=== PATIENT | male | born 1965 | race Two or more races ===

== ENCOUNTER 2024-11-17 09:57 | Emergency (ER) | payer BC, SELFPAY ==
[2024-11-17 09:58] VITALS: BMI 27.4
[2024-11-17 10:18] VITALS: BP 139/92; PULSE 70; RESP 18; TEMP 36.6; O2SAT 99
--- NOTE | 2024-11-17 10:21 | EKG_ITS ---
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
--- NOTE | 2024-11-17 10:21 | XR_ITS ---
Examination: PA lateral chest 2 views TECHNIQUE: Upright PA lateral chest 2 views Exam date and time: November 17, 2024 1036 hours INDICATIONS: Onset chest pain today. FINDINGS: Normal heart size Atelectasis versus early pneumonia in the right middle lobe noted on the lateral view No pulmonary edema IMPRESSION: Atelectasis versus early pneumonia in the right middle lobe, clinical correlation advised
--- NOTE | 2024-11-17 10:21 | XR_ITS ---
Examination: Duplex scan of the lower extremity, unilateral left complete Date and time of exam: November 17, 2024 1151 hours INDICATIONS: Left leg pain beginning 4 days ago Technique: Duplex scan of the extremity veins using B-mode/grayscale imaging and Doppler spectral analysis and color flow Attention is directed to internal echogenicity, compression and augmentation involving these veins, color flow assessment, spectral analysis Findings: Positive for acute deep vein thrombus involving the left popliteal vein Remaining venous system open IMPRESSION: Positive for acute deep vein thrombus left popliteal vein..
--- NOTE | 2024-11-17 10:22 | PD.EDRME ---
Rapid Medical Screening Exam RME Arrival date/time: 11/17/24 09:57 58-year-old male with recent air travel to [place] presents to the emergency department today complains of left lower extremity swelling Chief Complaint: Shortness of Breath/Dyspnea Time Seen by Provider: 11/17/24 10:04 Vital signs: Vital Signs Temperature 98 F 11/17/24 10:18 Pulse Rate 70 11/17/24 10:18 Respiratory Rate 18 11/17/24 10:18 Blood Pressure 139/92 H 11/17/24 10:18 Pulse Oximetry (%) 99 11/17/24 10:18 Oxygen Delivery Method Room Air 11/17/24 10:18
[2024-11-17 10:41] LABS: Basophils # (Auto) 0.1 Thou/mm3 (0.0-0.2); Basophils % (Auto) 1 % (0-2.5); Eosinophils # (Auto) 0.2 Thou/mm3 (0.0-0.5); Eosinophils % (Auto) 2 % (0-10); Hematocrit 51.5 % (41.0-53.0); Hemoglobin 17.9 g/dL (13.5-16.0); Immature Granulocytes % (Auto) 0 % (0-0); Immature Granulocytes Auto 0.01 Thou/mm3 (0.00-0.00); Lymphocytes % (Auto) 33 % (10-50); Mean Corpuscular HGB Conc 34.8 g/dl (31.0-37.0); Mean Corpuscular Hemoglobin 31.7 pg (25.0-35.0); Mean Corpuscular Volume 91 fL (80-100); Monocytes # (Auto) 0.7 Thou/mm3 (0.0-0.8); Monocytes % (Auto) 8 % (0-12); Neutrophils # (Auto) 5.2 Thou/mm3 (1.8-7.7); Neutrophils % (Auto) 57 % (37-80); Nucleated Red Blood Cell % 0 /100 WBC (0); Platelet Count 231 Thou/mm3 (140-440); RDW Standard Deviation 43.6 fL (35.1-43.9); Red Blood Count 5.65 Miln/mm3 (4.50-5.90); White Blood Count 9.1 Thou/mm3 (3.8-10.6)
[2024-11-17 10:55] LABS: Partial Thromboplastin Time 27.2 Seconds (22.0-36.0); Prothrombin Time 11.4 Seconds (9.0-12.2)
[2024-11-17 10:56] LABS: Alanine Aminotransferase 22 U/L (10-49); Albumin, Serum 4.4 gm/dL (3.5-5.0); Albumin/Globulin Ratio 1.6 (1.2-2.2); Alkaline Phosphatase 87 U/L (46-116); Anion Gap 8 (7-16); Aspartate Amino Transferase 23 U/L (0-34); BUN/Creatinine Ratio 17 Ratio (12-20); Bilirubin,Total 0.9 mg/dL (0.3-1.2); Blood Urea Nitrogen 15 mg/dL (9-23); Calcium 9.8 mg/dL (8.3-10.6); Calcium (Corrected) 9.8 mg/dL (8.5-10.1); Carbon Dioxide 26.4 mMol/L (20.0-31.0); Chloride 105 mMol/L (98-107); Creatinine (Component) 0.9 mg/dL (0.6-1.3); Estimated Creatinine Clearance 86.4 mL/min (>60); Globulin 2.7 gm/dL (2.3-3.5); Glucose 94 mg/dL (74-106); Osmolality,Calculated 278 (275-295); Potassium 4.4 mMol/L (3.4-5.1); Sodium 139 mMol/L (136-145); Total Protein 7.1 gm/dL (5.7-8.2); Troponin I < 0.020 ng/mL (0.0-0.045); eGFR > 60 See Note
[2024-11-17 11:15] LABS: B-Type Natriuretic Peptide < 20 pg/mL (0-100)
[2024-11-17 14:11] VITALS: BP 141/88; PULSE 73; RESP 19; O2SAT 95
--- NOTE | 2024-11-17 14:14 | PD.EDADULT ---
ED General RME/HPI General Chief complaint: Shortness of Breath/Dyspnea Stated complaint: SENT BY PCP SOB R/O DVT TO E Time Seen by Provider: 11/17/24 10:04 Arrival date/time: 11/17/24 09:57 CC: Left lower leg pain HPI ongoing for the past 4 days after traveling from [place]. The patient site is tender in the calf. Patient denies fever chills shortness of breath difficulty breathing nausea vomiting or headache. RME / HPI RME / HPI narrative: 11/17/24 09:57 58-year-old male with recent air travel to [place] presents to the emergency department today complains of left lower extremity swelling Related Data Previous Rx's ?Medication ?Instructions ?Recorded acetaminophen 500 mg tablet 500 mg PO Q6H PRN pain #20 tabs 03/23/24 (Tylenol Extra Strength) baclofen 10 mg tablet 10 mg PO BID #20 tabs 03/23/24 ibuprofen 600 mg tablet (IBU) 600 mg PO Q6H #20 tabs 03/23/24 apixaban 5 mg (74 tabs) tablets in 5 mg PO BID #74 tabs 11/17/24 a dose pack (Eliquis DVT-PE Treat 30D Start) Allergies Allergy/AdvReac Type Severity Reaction Status Date / Time No Known Allergies Allergy Verified 03/23/24 07:57 Review of Systems Review of Systems Narrative Review of Systems: GEN: No fever, no chills, no weight loss EYES: No discharge, no visual changes, no pain HEENT: No ear pain, no congestion, no sore throat PULM: No shortness of breath, no cough, no congestion CV: No chest pain, no dyspnea on exertion, no palpitations GI: No nausea, no vomiting, no diarrhea, no pain, no constipation : No frequency, no urgency, no dysuria MUSC/SKEL: No joint pain, no back pain,+ left leg pain SKIN: No rash PSYCH: No hallucinations, no depression HEME/LYMPH: No easy bleeding or bruising tendencies NEURO: No weakness, no headache Past Medical History Social History SMOKING STATUS: Never smoker ED Exam Narrative Physical exam: [General: Obese not in cot no acute distress Head normocephalic HEENT: Eyes pupils are PERRLA EOMs are intact all other subsystems within acceptable limits Neck is supple nontender Chest equal chest rise nontender to palpation Respiratory: Clear to auscultation no wheezes crackles or rubs CV: Rate rhythm is regular no murmurs rubs or clicks Abdomen is distended secondary to body habitus soft nontender no masses positive bowel sounds all 4 quadrants Back: No CVA tenderness no spinous process tenderness from cervical spine thoracic and lumbar spine Skin: Intact no petechiae rash induration ulceration or crepitus Extremities: Exquisite tenderness to palpation to the medial proximal portion of the left lower leg just overlying gastric the mucus and soleus. Moving all other extremities against resistance cap refill less than 2 seconds neurosensory intact Neuro: Awake alert oriented x3 Glascow coma 15 no focal deficits] Course Quality Measures none Orders Category Date Time Status EKG (ED ONLY) *Do not use* NOW Care 11/17/24 10:21 Completed EKG (ED Only) Stat Exams 11/17/24 10:21 Draft US venous doppler LE LT Stat Exams 11/17/24 10:21 Completed XR chest 2V Stat Exams 11/17/24 10:21 Completed B-Type Natriuretic Peptide Stat Lab 11/17/24 10:30 Completed CBC Stat Lab 11/17/24 10:30 Completed Comprehensive Metabolic Panel Stat Lab 11/17/24 10:30 Completed Partial Thromboplastin Time Stat Lab 11/17/24 10:30 Completed Prothrombin Time with INR Stat Lab 11/17/24 10:30 Completed Troponin I Stat Lab 11/17/24 10:30 Completed Apixaban [Eliquis] Med 11/17/24 14:13 Discontinued 10 mg PO X1 ONE Apixaban [Eliquis] Med 11/17/24 14:19 Discontinued 5 mg PO X1 ONE Vital Signs Vital signs: Vital Signs Temperature 98 F 11/17/24 10:18 Pulse Rate 70 11/17/24 10:18 Respiratory Rate 18 11/17/24 10:18 Blood Pressure 139/92 H 11/17/24 10:18 Pulse Oximetry (%) 99 11/17/24 10:18 Oxygen Delivery Method Room Air 11/17/24 10:18 [facility] Patient data External records reviewed:: [facility] previous records Clinical information provided by:: patient Social determinants that could affect healthcare access:: none Patient has the following chronic illnesses:: Hypertension How is presenting disease/condition affected by chronic disease/condition?: uneffected by Evaluation data The following diagnostics were reviewed and interpreted by me:: lab results and radiology exam(s) Lab and/or radiology exams considered but not ordered:: CBC shows no acute leukocytosis anemia she hemoconcentrated, no leukocytosis Coags within acceptable limits CMP shows no acute electrolyte imbalances renal impairment transaminitis or T. bili elevation EKG performed at 1033 shows a ventricular rate of 6 3 VA interval 172 QRS of 8 3 QTc of 399 this is normal sinus rhythm Ultrasound shows popliteal DVT. Interpretation Summary: Left lower extremity DVT Medications Medications considered but not ordered:: None Medication administrations:: Medication Administration History Discontinued Medications Apixaban (Apixaban 2.5 Mg Tablet) 10 mg PO X1 ONE Stop: 11/17/24 14:14 Last Admin: 11/17/24 14:20 Dose: Not Given Documented By: MERCEDES Non-Admin Reason: Cancelled by Provider Apixaban (Apixaban 2.5 Mg Tablet) 5 mg PO X1 ONE Stop: 11/17/24 14:20 Last Admin: 11/17/24 14:28 Dose: 5 mg Documented By: MERCEDES None Consultations Consultation(s) initiated? (list below): No Diagnosis Differential Diagnosis ED Complaint MDM: Superficial thrombophlebitis DVT cellulitis Most likely diagnosis given after review of the tests above:: DVT Admission Indicated Admission indicated?: not indicated Explain why admission is indicated or not indicated:: Stable for outpatient follow-up Admission Request Was there a request for admission?: No Disposition Plan Disposition Plan: Discharge Discharge Attestation Discharge Attestation: The patient and all family members were given an opportunity to ask questions and understood the discharge instructions. Discharge instructions specifically effects, indications for sooner follow up or return to the emergency department, and the expected course of current diagnosis. Patient condition: Stable Medical Decision Making Differential Diagnosis Differential Diagnosis: Superficial thrombophlebitis DVT cellulitis Lab Data 11/17/24 10:30 11/17/24 10:30 Labs: Lab Results 11/17/24 Range/Units 10:30 WBC 9.1 (3.8-10.6) Thou/mm3 RBC 5.65 (4.50-5.90) Miln/mm3 Hgb 17.9 H* (13.5-16.0) g/dL Hct 51.5 (41.0-53.0) % MCV 91 (80-100) fL MCH 31.7 (25.0-35.0) pg MCHC 34.8 (31.0-37.0) g/dl RDW Std Deviation 43.6 (35.1-43.9) fL Plt Count 231 (140-440) Thou/mm3 Neut % (Auto) 57 (37-80) % Lymph % (Auto) 33 (10-50) % [place] % (Auto) 8 (0-12) % Eos % (Auto) 2 (0-10) % Baso % (Auto) 1 (0-2.5) % Neut # (Auto) 5.2 (1.8-7.7) Thou/mm3 Lymph # (Auto) 3.0 (1.0-4.8) Thou/mm3 [place] # (Auto) 0.7 (0.0-0.8) Thou/mm3 Eos # (Auto) 0.2 (0.0-0.5) Thou/mm3 Baso # (Auto) 0.1 (0.0-0.2) Thou/mm3 Immature Gran # (Auto) 0.01 H (0.00-0.00) Thou/mm3 Absolute Nucleated RBC 0.00 (0.00-0.00) Thou/mm3 Immature Gran % 0 (0-0) % Nucleated RBC % 0 (0) /100 WBC PT 11.4 (9.0-12.2) Seconds INR 1.0 (0.9-1.3) APTT 27.2 (22.0-36.0) Seconds Sodium 139 (136-145) mMol/L Potassium 4.4 (3.4-5.1) mMol/L Chloride 105 (98-107) mMol/L Carbon Dioxide 26.4 (20.0-31.0) mMol/L Anion Gap 8 (7-16) BUN 15 (9-23) mg/dL Creatinine 0.9 (0.6-1.3) mg/dL Estim Creat Clear Calc 86.4 (>60) mL/min eGFR > 60 (60 - ) See Note BUN/Creatinine Ratio 17 (12-20) Ratio Glucose 94 (74-106) mg/dL Calculated Osmolality 278 (275-295) Calcium 9.8 (8.3-10.6) mg/dL Corrected Calcium 9.8 (8.5-10.1) mg/dL Total Bilirubin 0.9 (0.3-1.2) mg/dL AST 23 (0-34) U/L ALT 22 (10-49) U/L Alkaline Phosphatase 87 (46-116) U/L Troponin I < 0.020 (0.0-0.045) ng/mL B-Natriuretic Peptide < 20 (0-100) pg/mL Total Protein 7.1 (5.7-8.2) gm/dL Albumin 4.4 (3.5-5.0) gm/dL Globulin 2.7 (2.3-3.5) gm/dL Albumin/Globulin Ratio 1.6 (1.2-2.2) Discharge Plan Plan Patient Disposition: HOME (Self Care) Patient condition on transfer: Stable Prescriptions/Referrals Prescriptions/Med Rec: Shay Parker DVT-PE Treat 30D Start 5 mg (74 tabs) tablets,dose pack 5 mg PO BID Qty: 74 0RF No Action ibuprofen [IBU] 600 mg tablet 600 mg PO Q6H Qty: 20 0RF acetaminophen [Tylenol Extra Strength] 500 mg tablet 500 mg PO Q6H PRN (Reason: pain) Qty: 20 0RF baclofen 10 mg tablet 10 mg PO BID Qty: 20 0RF Referrals: Cole Easley PA-C [Primary Care Provider] - In 1 week Problem List Clinical Impression: DVT (deep venous thrombosis) Patient/Caregiver Discharge Instructions Education Materials: DVT Dc Additional Instructions: Follow-up with your primary care provider if there is a worsening of symptoms or any type of bleeding return the emergency room immediately for further evaluation. Print Language: Lithuanian Stand Alone Forms: Lorena Award Info., Work/School Release, Patient Portal Info Letter KATIE/LEONOR Supervising Physician KATIE/LEONOR Supervising Physician: Sanya Duke ENP
[2024-11-17] MEDS: APIXABAN 2.5 MG TABLET 5 MG PO (14:28)
[2024-11-17 14:34] VITALS: BP 141/88; PULSE 68; RESP 16; TEMP 36.7; O2SAT 99
== END 2024-11-17 14:35 | disposition home or self-care (01) ==
PROVIDERS: Nurse Practitioner Primary Care; Emergency Provider Emergency Medicine; PCP Physician Assistant
DX: I82.432 Acute embolism and thrombosis of left popliteal vein (principal); R07.9 Chest pain, unspecified; I10 Essential (primary) hypertension
CPT/HCPCS: 36415; 71046; 80053; 83880; 84484; 85025; 85610; 85730; 93005; 93971; 99284; A9270

== ENCOUNTER 2024-11-21 10:30 | Emergency (ER) | payer BC, SELFPAY ==
--- NOTE | 2024-11-21 10:40 | XR_ITS ---
Examination: PA lateral chest 2 views TECHNIQUE: Upright PA lateral chest 2 views Exam date and time: November 21, 2024 1046 hours Comparison November 17, 2024 INDICATIONS: Chest pain today FINDINGS: Mild bibasilar opacity Normal heart size The osseous structures are intact IMPRESSION: Bibasilar pneumonia
--- NOTE | 2024-11-21 10:41 | PD.EDRME ---
Rapid Medical Screening Exam RME Arrival date/time: 11/21/24 10:30 58-year-old male with a history of DVT presents to the emergency room with a chief complaint of 10 out of 10 sternal chest pain and abdominal pain x 1 hour. I have greeted and performed a focused initial assessment of this patient. A comprehensive ED assessment and evaluation of the patient, analysis of all test results, and completion of the medical decision making process will be conducted by additional ED providers. Chief Complaint: Chest Pain Vital signs reviewed by provider: Yes
[2024-11-21 10:42] VITALS: BP 145/95; PULSE 87; RESP 20; TEMP 36.6; O2SAT 93; BMI 28.2
--- NOTE | 2024-11-21 10:42 | XR_ITS ---
Examination: CTA chest with intravenous contrast 2-D reconstructions 3-D reconstructions, vascular Date and time of exam: November 21, 2024 1537 hours INDICATIONS: Wrist pain shortness of breath since yesterday CTDI: vol (mGy) 9.19 DLP: (mGycm) 317 Technique: Multiple axial sections of the thorax have been obtained. 3 mm slice thickness, from below the hemidiaphragms to above the apices of the lungs. Mediastinal and lung density settings have been obtained. 2-D sagittal and coronal reconstructions. 3-D angiographic renderings, 3-D volume renderings, 3D post processing, vascular maximum intensity projections obtained. Contrast administered is 100 cc Isovue-370. Low dose protocols were performed. One or more of the following dose reduction techniques were used; automated exposure control, adjustment of the mA and/or KV according to patient size, use of iterative reconstruction technique. Findings: No thoracic aortic aneurysm dilatation Pulmonary artery segments are not enlarged No pulmonary artery emboli Atelectasis in the lower lung zones No lobar pneumonia or pulmonary edema Mild to moderate calcification left anterior descending coronary artery Fatty infiltration throughout the liver, liver is irregular in contour Mildly hyperdense liver lesion, right lobe, 25 mm, axial image 135 No gallstones No pancreatic mass IMPRESSION: Negative for pulmonary artery emboli Recommend hepatic sonography to assess 25 mm mildly hyperdense liver lesion right lobe
[2024-11-21 11:39] LABS: Basophils # (Auto) 0.1 Thou/mm3 (0.0-0.2); Basophils % (Auto) 1 % (0-2.5); Eosinophils # (Auto) 0.1 Thou/mm3 (0.0-0.5); Eosinophils % (Auto) 1 % (0-10); Hematocrit 52.9 % (41.0-53.0); Hemoglobin 18.5 g/dL (13.5-16.0); Immature Granulocytes % (Auto) 0 % (0-0); Immature Granulocytes Auto 0.03 Thou/mm3 (0.00-0.00); Lymphocytes # (Auto) 2.5 Thou/mm3 (1.0-4.8); Lymphocytes % (Auto) 28 % (10-50); Mean Corpuscular Hemoglobin 31.5 pg (25.0-35.0); Mean Corpuscular Volume 90 fL (80-100); Monocytes # (Auto) 0.5 Thou/mm3 (0.0-0.8); Monocytes % (Auto) 6 % (0-12); Neutrophils # (Auto) 5.7 Thou/mm3 (1.8-7.7); Neutrophils % (Auto) 64 % (37-80); Nucleated Red Blood Cell % 0 /100 WBC (0); Platelet Count 247 Thou/mm3 (140-440); RDW Standard Deviation 42.5 fL (35.1-43.9); Red Blood Count 5.88 Miln/mm3 (4.50-5.90); White Blood Count 8.9 Thou/mm3 (3.8-10.6)
[2024-11-21 11:55] LABS: INR 1.1 (0.9-1.3); Partial Thromboplastin Time 29.8 Seconds (22.0-36.0); Prothrombin Time 11.8 Seconds (9.0-12.2)
[2024-11-21 12:04] LABS: B-Type Natriuretic Peptide < 20 pg/mL (0-100)
[2024-11-21 12:06] LABS: Collection Type, Urine Clean Catch
[2024-11-21 12:25] LABS: Bilirubin,Urine Negative (Negative); Blood,Urine Trace (Negative); Clarity,Urine Clear (Clear/Hazy); Color,Urine Yellow (Lt Yel-Yel); Glucose, Urine Negative (Negative); Ketones,Urine Negative (Negative); Leukocyte Esterase,Urine Negative (Negative); Nitrite,Urine Negative (Negative); PH,Urine 5.5 (5.0-7.0); Protein,Urine Trace (Neg - Trace); RBC,Urine 3 /hpf (0-3); Specific Gravity,Urine 1.026 (1.001-1.035); Squamous Epithelial Cell,Urine < 1 /hpf (0-5); Urobilinogen,Urine Negative mg/dL (0.0-1.0); WBC,Urine 4 /hpf (0-5)
[2024-11-21 12:26] LABS: Alanine Aminotransferase 50 U/L (10-49); Albumin, Serum 4.3 gm/dL (3.5-5.0); Albumin/Globulin Ratio 1.7 (1.2-2.2); Alkaline Phosphatase 91 U/L (46-116); Anion Gap 10 (7-16); Aspartate Amino Transferase 79 U/L (0-34); BUN/Creatinine Ratio 23 Ratio (12-20); Bilirubin,Total 0.9 mg/dL (0.3-1.2); Blood Urea Nitrogen 18 mg/dL (9-23); Calcium 9.4 mg/dL (8.3-10.6); Calcium (Corrected) 9.4 mg/dL (8.5-10.1); Carbon Dioxide 22.3 mMol/L (20.0-31.0); Chloride 107 mMol/L (98-107); Creatinine (Component) 0.8 mg/dL (0.6-1.3); Estimated Creatinine Clearance 98.5 mL/min (>60); Globulin 2.5 gm/dL (2.3-3.5); Glucose 122 mg/dL (74-106); Osmolality,Calculated 280 (275-295); Potassium 3.9 mMol/L (3.4-5.1); Sodium 139 mMol/L (136-145); Total Protein 6.8 gm/dL (5.7-8.2); Troponin I < 0.002 ng/mL (0.0-0.045); eGFR > 60 See Note
[2024-11-21 12:37] LABS: Amphetamine/Methamp Scrn,U Negative (Negative); Barbiturate Screen,Urine Negative (Negative); Benzodiazepines Screen,Urine Negative (Negative); Benzoylecgonine Screen, Ur Negative (Negative); Fentanyl Screen,Urine Negative (Negative); Opiate Screen,Urine Negative (Negative); THC Screen,Urine Negative (Negative)
[2024-11-21 12:41] LABS: LDH (Lactate Dehydrogenase) 249 U/L (120-246)
[2024-11-21 12:49] VITALS: BP 134/81; PULSE 70; RESP 16; TEMP 36.3; O2SAT 95
[2024-11-21 13:06] LABS: D-Dimer 610 ng/mL (<600)
--- NOTE | 2024-11-21 13:14 | PD.EDRME ---
Rapid Medical Screening Exam RME Arrival date/time: 11/21/24 10:30 11/21/24 10:30 58-year-old male with a history of DVT presents to the emergency room with a chief complaint of 10 out of 10 sternal chest pain and abdominal pain x 1 hour. I have greeted and performed a focused initial assessment of this patient. A comprehensive ED assessment and evaluation of the patient, analysis of all test results, and completion of the medical decision making process will be conducted by additional ED providers. Chief Complaint: Chest Pain Time Seen by Provider: 11/21/24 13:14 Vital signs: Vital Signs Temperature 97.9 F 11/21/24 10:42 Pulse Rate 87 11/21/24 10:42 Respiratory Rate 20 11/21/24 10:42 Blood Pressure 145/95 H 11/21/24 10:42 Pulse Oximetry (%) 93 L 11/21/24 10:42 Oxygen Delivery Method Room Air 11/21/24 10:42 RME Narrative: 11/21/24 10:30 58-year-old male with a history of DVT presents to the emergency room with a chief complaint of 10 out of 10 sternal chest pain and abdominal pain x 1 hour. I have greeted and performed a focused initial assessment of this patient. A comprehensive ED assessment and evaluation of the patient, analysis of all test results, and completion of the medical decision making process will be conducted by additional ED providers.
[2024-11-21] MEDS: Aspirin 325 MG TABLET PO (13:28)
[2024-11-21 13:31] VITALS: BP 144/88; PULSE 65; RESP 14; O2SAT 95
--- NOTE | 2024-11-21 13:39 | EDNOTE_ITS ---
<Statement entered by Evelyn Mack MD - 11/27/24 16:21> As co-signing physician, I was present and available for consult prn. I concur with the plan and care as documented by the midlevel provider. ED General RME/HPI General Chief complaint: Chest Pain Stated complaint: CHEST PAIN AND SOB HISTORY OF DVT ON 11/17 Time Seen by Provider: 11/21/24 13:14 Arrival date/time: 11/21/24 10:30 CC: Chest pain with radiation to the back HPI ongoing since 8 AM, the chest pain is since resolved the patient now has some back pain in the left anterior back. Patient was seen here 1 month ago for left leg DVT and is certainly on Eliquis. Patient denies shortness of breath difficulty breathing fever or chills. Back pain is a 6 to an 8 on a 10 scale. Related Data Previous Rx's ?Medication ?Instructions ?Recorded acetaminophen 500 mg tablet 500 mg PO Q6H PRN pain #20 tabs 03/23/24 (Tylenol Extra Strength) baclofen 10 mg tablet 10 mg PO BID #20 tabs 03/23/24 ibuprofen 600 mg tablet (IBU) 600 mg PO Q6H #20 tabs 03/23/24 apixaban 5 mg (74 tabs) tablets in 5 mg PO BID #74 tabs 11/17/24 a dose pack (Eliquis DVT-PE Treat 30D Start) Allergies Allergy/AdvReac Type Severity Reaction Status Date / Time No Known Allergies Allergy Verified 11/21/24 10:34 Review of Systems Review of Systems Narrative Review of Systems: GEN: No fever, no chills, no weight loss EYES: No discharge, no visual changes, no pain HEENT: No ear pain, no congestion, no sore throat PULM: No shortness of breath, no cough, no congestion CV: + chest pain, no dyspnea on exertion, no palpitations GI: No nausea, no vomiting, no diarrhea, no pain, no constipation : No frequency, no urgency, no dysuria MUSC/SKEL: No joint pain, + back pain SKIN: No rash PSYCH: No hallucinations, no depression HEME/LYMPH: No easy bleeding or bruising tendencies NEURO: No weakness, no headache Past Medical History Social History SMOKING STATUS: Never smoker ED Exam Narrative Physical exam: [General: Not in any acute distress Head normocephalic HEENT: Within acceptable limits Neck is supple nontender Chest equal chest rise nontender to palpation Respiratory: Clear to auscultation no wheezes crackles or rubs CV: Rate rhythm is regular no murmurs rubs or clicks Abdomen is soft nontender no masses positive bowel sounds all 4 quadrants Back: No CVA tenderness no spinous process tenderness from cervical spine thoracic and lumbar spine Skin: Intact no petechiae rash induration ulceration or crepitus Extremities: Moving all extremity against resistance cap refill less than 2 seconds neurosensory intact Neuro: Awake alert oriented x3 Glascow coma 15 no focal deficits] Course Quality Measures none Orders Category Date Time Status CT Screening NOW Care 11/21/24 10:43 Active EKG (ED ONLY) *Do not use* NOW Care 11/21/24 10:[address] angio chest Stat Exams 11/21/24 10:42 Completed EKG (ED Only) Stat Exams 11/21/24 10:40 Ordered XR chest 2V Stat Exams 11/21/24 10:40 Completed B-Type Natriuretic Peptide Stat Lab 11/21/24 11:17 Completed CBC Stat Lab 11/21/24 11:17 Completed Comprehensive Metabolic Panel Stat Lab 11/21/24 11:17 Completed D-Dimer Stat Lab 11/21/24 11:17 Completed Drug Screen,Urine Stat Lab 11/21/24 11:33 Completed LDH (Lactate Dehydrogenase) Stat Lab 11/21/24 11:17 Completed Magnesium Stat Lab 11/21/24 11:17 Completed Partial Thromboplastin Time Stat Lab 11/21/24 11:17 Completed Prothrombin Time with INR Stat Lab 11/21/24 11:17 Completed Troponin I Stat Lab 11/21/24 11:17 Completed Urinalysis Stat Lab 11/21/24 11:33 Completed Aspirin Med 11/21/24 10:41 Discontinued 325 mg PO X1 ONE Vital Signs Vital signs: Vital Signs Temperature 97.9 F 11/21/24 10:42 Pulse Rate 87 11/21/24 10:42 Respiratory Rate 20 11/21/24 10:42 Blood Pressure 145/95 H 11/21/24 10:42 Pulse Oximetry (%) 93 L 11/21/24 10:42 Oxygen Delivery Method Room Air 11/21/24 10:42 [facility] Patient data External records reviewed:: [facility] previous records Clinical information provided by:: patient Social determinants that could affect healthcare access:: none Patient has the following chronic illnesses:: DVT on Eliquis How is presenting disease/condition affected by chronic disease/condition?: u neffected by Evaluation data The following diagnostics were reviewed and interpreted by me:: lab results, radiology exam(s) and EKG tracing(s) Lab and/or radiology exams considered but not ordered:: EKG performed at 1042 shows ventricular rate of 85 VA interval 156 QRS of 82 QTc of 381 this is sinus rhythm CBC shows no acute leukocytosis rather the patient is hemoconcentrated, no anemia, no thrombocytopenia CMP shows a glucose of 122 no other electrolyte imbalances renal impairment transaminitis or T. bili elevation Urine is negative UDS is negative CTA chest is negative. Interpretation Summary: There is no acute finding requires emergent or immediate intervention patient's D-dimer 610 given the patient's potential for being coagulopathic we will do the CTA as he is hemoconcentrated already has a DVT in the left leg. Heart score of 1 patient will be discharged home Medications Medications considered but not ordered:: None Medication administrations:: Medication Administration History Discontinued Medications Aspirin (Aspirin 325 Mg Tablet) 325 mg PO X1 ONE Stop: 11/21/24 10:42 Last Admin: 11/21/24 13:28 Dose: 325 mg Documented By: VISHNU None Consultations Consultation(s) initiated? (list below): No Diagnosis Differential Diagnosis ED Complaint MDM: ACS DE pneumonia Most likely diagnosis given after review of the tests above:: Chest pain Admission Indicated Admission indicated?: not indicated Explain why admission is indicated or not indicated:: Stable for discharge Admission Request Was there a request for admission?: No Disposition Plan Disposition Plan: Discharge Discharge Attestation Discharge Attestation: The patient and all family members were given an opportunity to ask questions and understood the discharge instructions. Discharge instructions specifically effects, indications for sooner follow up or return to the emergency department, and the expected course of current diagnosis. Patient condition: Stable Medical Decision Making Differential Diagnosis Differential Diagnosis: ACS DE pneumonia Lab Data 11/21/24 11:17 11/21/24 11:17 Labs: Lab Results 11/21/24 11/21/24 Range/Units 11:17 11:33 WBC 8.9 (3.8-10.6) Thou/mm3 RBC 5.88 (4.50-5.90) Miln/mm3 Hgb 18.5 H* (13.5-16.0) g/dL Hct 52.9 (41.0-53.0) % MCV 90 (80-100) fL MCH 31.5 (25.0-35.0) pg MCHC 35.0 (31.0-37.0) g/dl RDW Std Deviation 42.5 (35.1-43.9) fL Plt Count 247 (140-440) Thou/mm3 Neut % (Auto) 64 (37-80) % Lymph % (Auto) 28 (10-50) % [place] % (Auto) 6 (0-12) % Eos % (Auto) 1 (0-10) % Baso % (Auto) 1 (0-2.5) % Neut # (Auto) 5.7 (1.8-7.7) Thou/mm3 Lymph # (Auto) 2.5 (1.0-4.8) Thou/mm3 [place] # (Auto) 0.5 (0.0-0.8) Thou/mm3 Eos # (Auto) 0.1 (0.0-0.5) Thou/mm3 Baso # (Auto) 0.1 (0.0-0.2) Thou/mm3 Immature Gran # (Auto) 0.03 H (0.00-0.00) Thou/mm3 Absolute Nucleated RBC 0.00 (0.00-0.00) Thou/mm3 Immature Gran % 0 (0-0) % Nucleated RBC % 0 (0) /100 WBC PT 11.8 (9.0-12.2) Seconds INR 1.1 (0.9-1.3) APTT 29.8 (22.0-36.0) Seconds D-Dimer 610 H (<600) ng/mL Sodium 139 (136-145) mMol/L Potassium 3.9 (3.4-5.1) mMol/L Chloride 107 (98-107) mMol/L Carbon Dioxide 22.3 (20.0-31.0) mMol/L Anion Gap 10 (7-16) BUN 18 (9-23) mg/dL Creatinine 0.8 (0.6-1.3) mg/dL Estim Creat Clear Calc 98.5 (>60) mL/min eGFR > 60 (60 - ) See Note BUN/Creatinine Ratio 23 H (12-20) Ratio Glucose 122 H (74-106) mg/dL Calculated Osmolality 280 (275-295) Calcium 9.4 (8.3-10.6) mg/dL Corrected Calcium 9.4 (8.5-10.1) mg/dL Magnesium 2.0 (1.6-2.6) mg/dL Total Bilirubin 0.9 (0.3-1.2) mg/dL AST 79 H (0-34) U/L ALT 50 H (10-49) U/L Alkaline Phosphatase 91 (46-116) U/L Lactate Dehydrogenase 249 H (120-246) U/L Troponin I < 0.002 (0.0-0.045) ng/mL B-Natriuretic Peptide < 20 (0-100) pg/mL Total Protein 6.8 (5.7-8.2) gm/dL Albumin 4.3 (3.5-5.0) gm/dL Globulin 2.5 (2.3-3.5) gm/dL Albumin/Globulin Ratio 1.7 (1.2-2.2) Ur Collection Type Clean Catch Urine Color Yellow (Lt Yel-Yel) Urine Clarity Clear (Clear/Hazy) Urine pH 5.5 (5.0-7.0) Ur Specific [place] 1.026 (1.001-1.035) Urine Protein Trace (Neg - Trace) Urine Glucose (UA) Negative (Negative) Urine Ketones Negative (Negative) Urine Blood Trace (Negative) Urine Nitrite Negative (Negative) Urine Bilirubin Negative (Negative) Urine Urobilinogen (Auto) Negative (0.0-1.0) mg/dL Ur Leukocyte Esterase Negative (Negative) Urine RBC 3 (0-3) /hpf Urine WBC 4 (0-5) /hpf Ur Squamous Epith Cells < 1 (0-5) /hpf Urine Bacteria None (None) Urine Opiates Screen Negative (Negative) Urine Fentanyl Screen Negative (Negative) Ur Barbiturates Screen Negative (Negative) U Amphetamin/Meth Scrn Negative (Negative) U Benzodiazepines Scrn Negative (Negative) U Cocaine Metab Screen Negative (Negative) U Marijuana (THC) Screen Negative (Negative) Discharge Plan Plan Patient Disposition: HOME (Self Care) Patient condition on transfer: Stable Prescriptions/Referrals Prescriptions/Med Rec: No Action Eliquis DVT-PE Treat 30D Start 5 mg (74 tabs) tablets,dose pack 5 mg PO BID Qty: 74 0RF ibuprofen [IBU] 600 mg tablet 600 mg PO Q6H Qty: 20 0RF acetaminophen [Tylenol Extra Strength] 500 mg tablet 500 mg PO Q6H PRN (Reason: pain) Qty: 20 0RF baclofen 10 mg tablet 10 mg PO BID Qty: 20 0RF Referrals: Cole Easley PA-C [Primary Care Provider] - In 1 week Problem List Clinical Impression: Chest pain Patient/Caregiver Discharge Instructions Education Materials: ED Chest Pain, Uncertain Cause Additional Instructions: Follow-up with your primary care doctor. If there is a worsening of symptoms return the emergency room for reevaluation. Print Language: Kazakh Stand Alone Forms: [place] Award Info., Patient Portal Info Letter, Work/School Release PA/LEONOR Supervising Physician KATIE/LEONOR Supervising Physician: Mallory Duke ENP
[2024-11-21 15:00] VITALS: BP 135/67; PULSE 68; RESP 17; TEMP 36.9; O2SAT 97
[2024-11-21 17:28] VITALS: BP 120/82; PULSE 74; RESP 15; TEMP 36.3; O2SAT 94
[2024-11-21 18:21] VITALS: BP 104/72; PULSE 70; RESP 15; O2SAT 94
== END 2024-11-21 18:43 | disposition home or self-care (01) ==
PROVIDERS: Nurse Practitioner Family; Emergency Provider Emergency Medicine; PCP Physician Assistant
DX: R07.9 Chest pain, unspecified (principal)
CPT/HCPCS: 36415; 71046; 71275; 80053; 80307; 81001; 83615; 83735; 83880; 84484; 85025; 85379; 85610; 85730; 93005; 99285; A4649; Q9967; A9270

== ENCOUNTER 2025-06-03 07:54 | Outpatient (RCR) | payer BC, SELFPAY | END 2025-06-18 23:59 | disposition home or self-care (01) | LOC: SCTC 07:54 | PROVIDERS: PCP Family Medicine; Referring Provider Family Medicine; Visit Provider Internal Medicine Hematology & Oncology | DX: I82.402 Acute embolism and thrombosis of unspecified deep veins of left lower extremity (principal); Z79.01 Long term (current) use of anticoagulants; Z86.2 Personal history of diseases of the blood and blood-forming organs and certain disorders involving the immune mechanism; R06.83 Snoring | CPT/HCPCS: 99213; G0463 ==

== ENCOUNTER → 2025-06-03 | Outpatient (CLI) | payer BC, SELFPAY ==
[2025-06-03 10:23] LABS: Misc Send Out* See Sep Rpt
[2025-06-03 10:57] LABS: Basophils # (Auto) 0.1 Thou/mm3 (0.0-0.2); Basophils % (Auto) 1 % (0-2.5); Eosinophils # (Auto) 0.1 Thou/mm3 (0.0-0.5); Eosinophils % (Auto) 2 % (0-10); Hematocrit 47.7 % (41.0-53.0); Hemoglobin 16.8 g/dL (13.5-16.0); Immature Granulocytes Auto 0.01 Thou/mm3 (0.00-0.00); Immature Reticulocyte Fraction 11.3 % (2.3-13.4); Lymphocytes # (Auto) 2.0 Thou/mm3 (1.0-4.8); Lymphocytes % (Auto) 32 % (10-50); Mean Corpuscular HGB Conc 35.2 g/dl (31.0-37.0); Mean Corpuscular Hemoglobin 31.8 pg (25.0-35.0); Mean Corpuscular Volume 90 fL (80-100); Monocytes # (Auto) 0.5 Thou/mm3 (0.0-0.8); Monocytes % (Auto) 8 % (0-12); Neutrophils # (Auto) 3.5 Thou/mm3 (1.8-7.7); Neutrophils % (Auto) 57 % (37-80); Nucleated Red Blood Cell # 0.00 Thou/mm3 (0.00-0.00); Nucleated Red Blood Cell % 0 /100 WBC (0); Platelet Count 234 Thou/mm3 (140-440); RDW Standard Deviation 42.8 fL (35.1-43.9); Red Blood Count 5.29 Miln/mm3 (4.50-5.90); Reticulocyte % (Auto) 1.1 % (0.5-1.5); Reticulocyte Absolute Auto 58.2 Biln/L (25.0-75.0); Reticulocyte Hgb Content 36.3 pg (28.0-35.0); White Blood Count 6.2 Thou/mm3 (3.8-10.6)
[2025-06-03 11:13] LABS: Alanine Aminotransferase 19 U/L (10-49); Albumin, Serum 4.1 gm/dL (3.4-4.8); Albumin/Globulin Ratio 1.8 (1.2-2.2); Alkaline Phosphatase 77 U/L (46-116); Anion Gap 7 (7-16); Aspartate Amino Transferase 21 U/L (0-34); BUN/Creatinine Ratio 17 Ratio (12-20); Bilirubin,Total 0.8 mg/dL (0.3-1.2); Blood Urea Nitrogen 15 mg/dL (9-23); C-Reactive Protein < 0.5 mg/dL (0.0-0.9); Calcium 8.9 mg/dL (8.3-10.6); Calcium (Corrected) 8.9 mg/dL (8.5-10.1); Carbon Dioxide 26.1 mMol/L (20.0-31.0); Chloride 108 mMol/L (98-107); Creatinine (Component) 0.9 mg/dL (0.6-1.3); Ferritin 59 ng/mL (10.5-307.3); Folate 17.36 ng/mL (>5.38); Globulin 2.3 gm/dL (2.3-3.5); Glucose 104 mg/dL (74-106); Iron 84 mcg/dL (65-175); Osmolality,Calculated 282 (275-295); Percent Iron Saturation 32 % (20-55); Potassium 4.5 mMol/L (3.4-5.1); Sodium 141 mMol/L (136-145); Total Iron Binding Capacity 258 mcg/dL (250-425); Total Protein 6.4 gm/dL (5.7-8.2); Unsaturated Iron Binding 174 (225-295); Vitamin B12 667 pg/mL (211-911); eGFR > 60 See Note
[2025-06-03 11:15] LABS: D-Dimer < 250 ng/mL (<600)
[2025-06-09 06:47] LABS: Erythropoietin (EPO)* 12.1 mIU/mL (2.6-18.5); Testosterone,Total* 433 ng/dL (250-1100)
== END | disposition home or self-care (01) ==
LOC: SCTO 09:58
PROVIDERS: PCP Family Medicine; Referring Provider Nurse Practitioner Family; Visit Provider Nurse Practitioner Family
DX: I82.432 Acute embolism and thrombosis of left popliteal vein (principal)
CPT/HCPCS: 36415; 80053; 82607; 82668; 82728; 82746; 83540; 83550; 84403; 85025; 85046; 85379; 86140

== ENCOUNTER → 2025-06-15 | Outpatient (CLI) | payer BC, SELFPAY ==
--- NOTE | 2025-06-15 15:00 | XR_ITS ---
Examination: CT chest with intravenous contrast CT abdomen with intravenous contrast CT pelvis with intravenous contrast CT chest without intravenous contrast CT abdomen without intravenous contrast CT pelvis without intravenous contrast 2-D coronal and sagittal reconstructions Time of exam: June 15, 2025, 1549 hours, comparison CT chest November 21, 2024 INDICATIONS: Diagnosis acute embolism and thrombosis of unspecified deep veins, DVT October 2024, 25 mm mildly hyperdense right lobe liver lesion on CT chest November 21, 2024 CTDI: vol (mGy) : 16 DLP: (mGycm): 1224 Technique: Multiple axial images of the chest, abdomen and pelvis with intravenous contrast, 3.0 mm slice thickness. Images obtained post intravenous injection Isovue 370 60 cc. 2-D sagittal and coronal reconstructions. Low dose protocols were performed. One or more of the following dose reduction techniques were used; automated exposure control, adjustment of the mA and/or KV according to patient size, use of iterative reconstruction technique. Findings: No thoracic aortic aneurysmal dilatation or dissection No pulmonary artery filling defects No paratracheal tracheobronchial or bronchopulmonary adenopathy Small calcified granulomas in the right lung No pneumonia or pulmonary edema or pleural disease No visualized liver or splenic lesion No gallstones No common bile duct stones No pancreatic or adrenal mass No renal or ureteral calculi, no hydronephrosis Normal appendix No abdominal or pelvic lymphadenopathy No bowel obstruction Intact urinary bladder Transverse prostate dimension 4.0 cm Fat-containing right inguinal hernia Advanced disc narrowing L5-S1 with prominent osteopenia IMPRESSION: No mediastinal lymphadenopathy No pneumonia or pulmonary edema or pleural disease. Normal appendix No abdominal or pelvic lymphadenopathy
== END | disposition home or self-care (01) ==
PROVIDERS: PCP Nurse Practitioner Family; Referring Provider Nurse Practitioner Family; Visit Provider Nurse Practitioner Family
DX: I82.402 Acute embolism and thrombosis of unspecified deep veins of left lower extremity (principal)
CPT/HCPCS: 71270; 74178; A4649; Q9967

== ENCOUNTER 2025-07-13 11:36 | Emergency (ER) | payer BC, SELFPAY ==
[2025-07-13 11:37] VITALS: BMI 28.2
[2025-07-13 12:24] VITALS: BP 143/93; PULSE 79; RESP 18; TEMP 36.9; O2SAT 99
--- NOTE | 2025-07-13 12:27 | XR_ITS ---
Examination: CTA chest with intravenous contrast 2-D reconstructions 3-D reconstructions, vascular Date and time of exam: July 13, 2025, 1932 hours INDICATIONS: Shortness of breath today, positive for DVT and Doppler sonogram lower extremities today CTDI: vol (mGy) 15 DLP: (mGycm) 307 Technique: Multiple axial sections of the thorax have been obtained. 3 mm slice thickness, from below the hemidiaphragms to above the apices of the lungs. Mediastinal and lung density settings have been obtained. 2-D sagittal and coronal reconstructions. 3-D angiographic renderings, 3-D volume renderings, 3D post processing, vascular maximum intensity projections obtained. Contrast administered is 100 cc Isovue 370 intravenous. Low dose protocols were performed. One or more of the following dose reduction techniques were used; automated exposure control, adjustment of the mA and/or KV according to patient size, use of iterative reconstruction technique. Findings: No thoracic aortic aneurysm dilatation or dissection. Negative for pulmonary artery filling defects No mediastinal lymphadenopathy. Atelectasis in the lower lung zones. No pneumonia or pulmonary edema. No visualized liver or splenic lesion Contracted gallbladder Normal pancreas Mild thoracic spondylosis IMPRESSION: Negative for pulmonary artery emboli No pneumonia, pulmonary edema or pleural disease
--- NOTE | 2025-07-13 12:27 | XR_ITS ---
Examination: Duplex scan of the lower extremity, unilateral right Date and time of exam: July 13, 2025, 1310 hours. INDICATIONS: Right leg swelling and pain beginning 4 days ago. Technique: Duplex scan of the extremity veins using B-mode/grayscale imaging and Doppler spectral analysis and color flow Attention is directed to internal echogenicity, compression and augmentation involving these veins, color flow assessment, spectral analysis Findings: Major deep venous structures in the extremity demonstrate normal course and caliber. There is no evidence of deep vein thrombosis. Normal color flow and spectral analysis Impression: Negative for DVT..
--- NOTE | 2025-07-13 12:29 | EDRME_ITS ---
Rapid Medical Screening Exam [facility] Arrival date/time: 07/13/25 11:36 59-year-old male with a history of DVT on Eliquis presents to the emergency room with a chief complaint of shortness of breath and difficulty breathing. Patient was also sent by his primary care provider for a nonocclusive DVT in his left lower extremity. Patient states he recently got back from a 3-week trip from [place]. I have greeted and performed a focused initial assessment of this patient. A comprehensive ED assessment and evaluation of the patient, analysis of all test results, and completion of the medical decision making process will be conducted by additional ED providers. Chief Complaint: General Adult/Misc Complain Vital signs: Vital Signs Temperature 98.5 F 07/13/25 12:24 Pulse Rate 79 07/13/25 12:24 Respiratory Rate 18 07/13/25 12:24 Blood Pressure 143/93 H 07/13/25 12:24 Pulse Oximetry (%) 99 07/13/25 12:24 Oxygen Delivery Method Room Air 07/13/25 12:24 Vital signs reviewed by provider: Yes
[2025-07-13 13:16] LABS: Basophils # (Auto) 0.1 Thou/mm3 (0.0-0.2); Basophils % (Auto) 1 % (0-2.5); Eosinophils # (Auto) 0.1 Thou/mm3 (0.0-0.5); Eosinophils % (Auto) 2 % (0-10); Hematocrit 53.1 % (41.0-53.0); Hemoglobin 18.0 g/dL (13.5-16.0); Immature Granulocytes Auto 0.02 Thou/mm3 (0.00-0.00); Lymphocytes # (Auto) 2.4 Thou/mm3 (1.0-4.8); Lymphocytes % (Auto) 36 % (10-50); Mean Corpuscular HGB Conc 33.9 g/dl (31.0-37.0); Mean Corpuscular Hemoglobin 31.4 pg (25.0-35.0); Mean Corpuscular Volume 93 fL (80-100); Monocytes # (Auto) 0.4 Thou/mm3 (0.0-0.8); Monocytes % (Auto) 6 % (0-12); Neutrophils # (Auto) 3.8 Thou/mm3 (1.8-7.7); Neutrophils % (Auto) 56 % (37-80); Nucleated Red Blood Cell # 0.00 Thou/mm3 (0.00-0.00); Nucleated Red Blood Cell % 0 /100 WBC (0); Platelet Count 243 Thou/mm3 (140-440); RDW Standard Deviation 45.4 fL (35.1-43.9); Red Blood Count 5.73 Miln/mm3 (4.50-5.90); White Blood Count 6.7 Thou/mm3 (3.8-10.6)
[2025-07-13 13:23] LABS: INR 1.1 (0.9-1.3); Partial Thromboplastin Time 29.4 Seconds (22.0-36.0); Prothrombin Time 11.6 Seconds (9.0-12.2)
[2025-07-13 13:24] LABS: Alanine Aminotransferase 17 U/L (10-49); Albumin, Serum 4.4 gm/dL (3.4-4.8); Albumin/Globulin Ratio 1.8 (1.2-2.2); Alkaline Phosphatase 90 U/L (46-116); Anion Gap 10 (7-16); Aspartate Amino Transferase 19 U/L (0-34); BUN/Creatinine Ratio 13 Ratio (12-20); Bilirubin,Total 0.8 mg/dL (0.3-1.2); Blood Urea Nitrogen 12 mg/dL (9-23); Calcium 9.8 mg/dL (8.3-10.6); Calcium (Corrected) 9.8 mg/dL (8.5-10.1); Carbon Dioxide 25.7 mMol/L (20.0-31.0); Chloride 105 mMol/L (98-107); Creatinine (Component) 0.9 mg/dL (0.6-1.3); Estimated Creatinine Clearance 86.5 mL/min (>60); Globulin 2.5 gm/dL (2.3-3.5); Glucose 127 mg/dL (74-106); Osmolality,Calculated 282 (275-295); Potassium 3.9 mMol/L (3.4-5.1); Sodium 141 mMol/L (136-145); Total Protein 6.9 gm/dL (5.7-8.2); eGFR > 60 See Note
[2025-07-13 13:38] LABS: D-Dimer < 250 ng/mL (<600)
--- NOTE | 2025-07-13 21:40 | PD.EDADULT ---
ED General RME/HPI General Chief complaint: General Adult/Misc Complain Stated complaint: DVT BLE, SENT BY MD Time Seen by Provider: 07/13/25 21:39 Arrival date/time: 07/13/25 11:36 RME / HPI RME / HPI narrative: 07/13/25 11:36 59-year-old male with a history of DVT on Eliquis presents to the emergency room with a chief complaint of shortness of breath and difficulty breathing. Patient was also sent by his primary care provider for a nonocclusive DVT in his left lower extremity. Patient states he recently got back from a 3-week trip from [place]. I have greeted and performed a focused initial assessment of this patient. A comprehensive ED assessment and evaluation of the patient, analysis of all test results, and completion of the medical decision making process will be conducted by additional ED providers. Dr. Vila?s Main ED Evaluation: 59yo male who was referred by PMD after follow-up US of LLE demonstrated propagation of DVT. Reports mild LLE discomfort. No paresthesias or weakness. Occasional fleeting shortness of breath/chest pain noted. Patient notes compliance with Eliquis and original diagnosis of DVT in 10/2024. PMH polycythemia vera, HTN. PSH noncontributory. Occasional alcohol use, but no tobacco use. Related Data Previous Rx's ?Medication ?Instructions ?Recorded acetaminophen 500 mg tablet 500 mg PO Q6H PRN pain #20 tabs 03/23/24 (Tylenol Extra Strength) baclofen 10 mg tablet 10 mg PO BID #20 tabs 03/23/24 ibuprofen 600 mg tablet (IBU) 600 mg PO Q6H #20 tabs 03/23/24 apixaban 5 mg (74 tabs) tablets in 5 mg PO BID #74 tabs 11/17/24 a dose pack (Eliquis DVT-PE Treat 30D Start) enoxaparin 80 mg/0.8 mL 80 mg (0.8 mL) subcut Q12H DVT 3 07/13/25 subcutaneous syringe (Lovenox) days #4.8 mL warfarin 5 mg tablet 10 mg (2 x 5 mg) PO QDAY 3 days 07/13/25 #60 tabs Allergies Allergy/AdvReac Type Severity Reaction Status Date / Time No Known Allergies Allergy Verified 07/13/25 11:41 Review of Systems Review of Systems Systems Reviewed: All systems reviewed, normal except as documented Past Medical History Past Medical History CARDIAC: Negative Cardiac Disorders or Congestive Heart Failure RESPIRATORY: Negative Chronic Obstructive Pulmonary Disease (COPD) or Asthma GENITOURINARY: Negative Renal Disease ENDOCRINE: Negative Diabetes Mellitus Type 1 or Diabetes Mellitus Type 2 HEMATOLOGIC: Negative Sickle Cell Disease Social History SMOKING STATUS: Never smoker ED Exam Narrative Physical exam: GENERAL APPEARANCE: alert and oriented x 4, well-developed, well-nourished, no acute distress VITALS: All vitals were reviewed and the pulse ox is 99% on room air, which is normal according to my interpretation. HEENT: Normocephalic, atraumatic; pupils equal, round, reactive to light; EOMI; mucous membranes pink, moist; oropharynx clear NECK: Supple LUNGS: CTABL; no wheezes, no rales, no rhonchi HEART: Regular rate, regular rhythm; normal S1, S2; no murmurs ABDOMEN: non distended; normal BS; soft, no tenderness BACK: no CVA tenderness EXTREMITIES: atraumatic; LLE without edema or erythema, but there is minimal calf tenderness noted; distal function intact NEUROLOGIC: awake; alert and oriented x4; cranial nerves II-XII grossly intact; no focal sensory or motor deficits PSYCHIATRIC: appropriate mood and affect SKIN: warm, dry, normal color; no rashes Course Quality Measures none Orders Category Date Time Status CT Screening NOW Care 07/13/25 12:[address] angio chest Stat Exams 07/13/25 12:27 Completed US venous doppler LE RT Stat Exams 07/13/25 12:27 Completed CBC Stat Lab 07/13/25 12:38 Completed CMP [Comprehensive Metabolic Panel] Stat Lab 07/13/25 12:38 Completed D-Dimer Stat Lab 07/13/25 12:38 Completed PT [Prothrombin Time with INR] Stat Lab 07/13/25 12:38 Completed PTT [Partial Thromboplastin Time] Stat Lab 07/13/25 12:38 Completed Vital Signs Vital signs: Vital Signs Temperature 98.5 F 07/13/25 12:24 Pulse Rate 79 07/13/25 12:24 Respiratory Rate 18 07/13/25 12:24 Blood Pressure 143/93 H 07/13/25 12:24 Pulse Oximetry (%) 99 07/13/25 12:24 Oxygen Delivery Method Room Air 07/13/25 12:24 Discharge Plan Plan Patient Disposition: HOME (Self Care) Prescriptions/Referrals Prescriptions/Med Rec: New enoxaparin [Lovenox] 80 mg/0.8 mL syringe 80 mg subcut Q12H 3 Days Qty: 4.8 0RF warfarin 5 mg tablet 10 mg PO QDAY 3 Days Qty: 60 0RF Rx Instructions: on odd numbered days No Action Eliquis DVT-PE Treat 30D Start 5 mg (74 tabs) tablets,dose pack 5 mg PO BID Qty: 74 0RF ibuprofen [IBU] 600 mg tablet 600 mg PO Q6H Qty: 20 0RF acetaminophen [Tylenol Extra Strength] 500 mg tablet 500 mg PO Q6H PRN (Reason: pain) Qty: 20 0RF baclofen 10 mg tablet 10 mg PO BID Qty: 20 0RF Referrals: Brant Jiménez MD [Primary Care Provider] - In 1 week Problem List Clinical Impression: Dvt femoral (deep venous thrombosis) Patient/Caregiver Discharge Instructions Discharge Activity: activity as tolerated Education Materials: ED Deep Vein Thrombosis (DVT) Additional Instructions: Begin medication as directed. Follow-up with fluid designer oncologist for evaluation of polycythemia vera. Return for increasing shortness of breath chest pain lightheadedness or worsening Print Language: Lao Stand Alone Forms: [facility] Award Info., Patient Portal Info Letter MDM Narrative [facility] hospital course: Scribe Attestation: 07/13/25 - Negrita Cast am scribing for and in the presence of Dr. Vila. 59yo male who was referred by PMD after follow-up US of LLE demonstrated propagation of DVT. Reports mild LLE discomfort. No paresthesias or weakness. Lab markers demonstrate Hgb 18, normal platelet count. Chemistrie are within normal limits. Bilateral doppler US LE without evidence of DVT in the RLE, however, there does appear to be larger clot burden in the LLE involving the mid and distal superficial femoral vein when compared to the US done in 10/2024. Clots are however nonocclusive. CTA chest without evidence of PE. Patient resting comfortably in no acute distress. Consultation made with internal medicine and recommended discontinuing Eliquis and bridging in Warfarin. Will initiate Lovenox x 3 days and initial coumadin administration. Recommend close follow-up with PMD. Dx: propagating nonocclusive LLE DVT. Clinical Information Provided by patient Medical Records Reviewed [facility] (Per chart review, patient was seen here on 11/21/24 for chest pain.) Meds/Rx Considered, not Ordered None Labs/Rad/Tests considered, not Ordered None Chronic Illness/Social Conditions which may negatively complicate care or outcome(s)-explain: None or not applicable EKG EKG not done Lab Interpretation Labs: interpreted by me Imaging Imaging interpretation: interpreted by me Radiology reports / interpretation(s): [place] [facility] Report Signed Patient: SANDRA PRADHAN Med. Record#: [id number] Birthdate: 1965 Age/Sex: 59 / M Location: [facility] Attending Dr: Ordering Physician: Juan Jose Mitchell Date of Service: 07/13/25 Procedure(s): US venous doppler LE RT Accession Number(s): [id number] cc: Juan Jose Mitchell; Nicholas Amin MD~ Examination: Duplex scan of the lower extremity, unilateral right Date and time of exam: July 13, 2025, 1310 hours. INDICATIONS: Right leg swelling and pain beginning 4 days ago. Technique: Duplex scan of the extremity veins using B-mode/grayscale imaging and Doppler spectral analysis and color flow Attention is directed to internal echogenicity, compression and augmentation involving these veins, color flow assessment, spectral analysis Findings: Major deep venous structures in the extremity demonstrate normal course and caliber. There is no evidence of deep vein thrombosis. Normal color flow and spectral analysis Impression: Negative for DVT.. Dictated By: Nicholas Amin MD Signed By: <Electronically signed by Nicholas Amin MD in OV> 07/13/25 1358 [facility] [place] Report Signed Patient: SANDRA PRADHAN Med. Record#: [id number] Birthdate: 1965 Age/Sex: 59 / M Location: [facility] Attending Dr: Ordering Physician: Juan Jose Mitchell Date of Service: 07/13/25 Procedure(s): CT angio chest Accession Number(s): [id number] cc: Brant Jiménez MD; Juan Jose Mitchell; Nicholas Amin MD~ Examination: CTA chest with intravenous contrast 2-D reconstructions 3-D reconstructions, vascular Date and time of exam: July 13, 2025, 1932 hours INDICATIONS: Shortness of breath today, positive for DVT and Doppler sonogram lower extremities today CTDI: vol (mGy) 15 DLP: (mGycm) 307 Technique: Multiple axial sections of the thorax have been obtained. 3 mm slice thickness, from below the hemidiaphragms to above the apices of the lungs. Mediastinal and lung density settings have been obtained. 2-D sagittal and coronal reconstructions. 3-D angiographic renderings, 3-D volume renderings, 3D post processing, vascular maximum intensity projections obtained. Contrast administered is 100 cc Isovue 370 intravenous. Low dose protocols were performed. One or more of the following dose reduction techniques were used; automated exposure control, adjustment of the mA and/or KV according to patient size, use of iterative reconstruction technique. Findings: No thoracic aortic aneurysm dilatation or dissection. Negative for pulmonary artery filling defects No mediastinal lymphadenopathy. Atelectasis in the lower lung zones. No pneumonia or pulmonary edema. No visualized liver or splenic lesion Contracted gallbladder Normal pancreas Mild thoracic spondylosis IMPRESSION: Negative for pulmonary artery emboli No pneumonia, pulmonary edema or pleural disease Dictated By: Nicholas Amin MD Signed By: <Electronically signed by Nicholas Amin MD in OV> 07/13/25 8101 Medication Administration(s) none Diagnosis Differential diagnosis: pneumonia, COVID, Influenza, URI, viral syndrome, PE Most likely dx, and/or detailed dx discussion: see clinical impression below Dispositon Disposition: Discharge Home
[2025-07-13 22:33] VITALS: BP 124/62; PULSE 64; RESP 18; TEMP 36.2; O2SAT 99
== END 2025-07-13 22:34 | disposition home or self-care (01) ==
PROVIDERS: Nurse Practitioner Family; Emergency Provider Emergency Medicine; PCP Family Medicine
DX: I82.402 Acute embolism and thrombosis of unspecified deep veins of left lower extremity (principal); D45 Polycythemia vera; I10 Essential (primary) hypertension
CPT/HCPCS: 36415; 71275; 80053; 85025; 85379; 85610; 85730; 93971; 99284; A4649; Q9967

== ENCOUNTER → 2025-07-13 | Outpatient (CLI) | payer BC, SELFPAY ==
--- NOTE | 2025-07-13 10:20 | XR_ITS ---
Examination: Duplex scan of the lower extremity, unilateral left Date and time of exam: July 13, 2025: 1034 hours INDICATIONS: Left leg pain beginning 10 days ago Technique: Duplex scan of the extremity veins using B-mode/grayscale imaging and Doppler spectral analysis and color flow Attention is directed to internal echogenicity, compression and augmentation involving these veins, color flow assessment, spectral analysis Findings: Positive for nonocclusive thrombus in the mid and distal left superficial femoral vein and left popliteal vein and peroneal vein IMPRESSION: Positive for nonocclusive DVT as above
== END | disposition home or self-care (01) ==
PROVIDERS: PCP Family Medicine; Referring Provider Nurse Practitioner Family; Visit Provider Nurse Practitioner Family
DX: I82.402 Acute embolism and thrombosis of unspecified deep veins of left lower extremity (principal)
CPT/HCPCS: 93971

== ENCOUNTER 2025-07-15 09:30 | Outpatient (RCR) | payer BC, SELFPAY ==
--- NOTE | 2025-07-15 13:23 | CTCFLWUP_ITS ---
Patient: SANDRA PRADHAN : 1965 Page 2 of 4 FOLLOW UP NOTE DATE OF SERVICE: 07/15/2025 NAME: SANDRA PRADHAN ACCOUNT: [id number] : 1965 AGE: 59 INTERVAL HISTORY: Persistent DVT ONCOLOGY HISTORY: DIAGNOSIS: #1 deep vein thrombosis #2 erythrocytosis HISTORY OF PRESENT ILLNESS: 59-year-old male was diagnosed with a lower extremity DVT left in 2023. At that time he followed with him silk screener in [place]. He was started on Eliquis. Patient has been very compliant and has been taking Eliquis. Per patient his leg never has showed any improvement. He has been taking it for about 9 months. Patient had been having pain in his leg. He had an ultrasound which showed persistent clot in the left leg. Patient have a nonocclusive clot in the right leg and CT angiogram were all negative. Patient denies any shortness of breath Patient have never donated blood or had phlebotomy. Patient have a known diagnosis of erythrocytosis. Unfortunately patient never did phlebotomy which likely led to his clot formation along with history of travel in the past which might have induced first clot formation. 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 Tobacco?Use:?Denies ETOH?Use:?Socailly Drug?Note:?Denies Social?History?Note:?Lives?with? MEDICATIONS: 1. losartan - 50 mg 1 tab Daily 2. Lovenox - 80 mg/0.8 mL 80 mg Every 12 Hours 3. multivitamin - 1 tab Daily 4. warfarin - 10 mg 2 tab Daily Medications Last Reconciled by Isi Murphy MD on 07/15/2025 ALLERGIES: No Known Drug Allergies REVIEW OF SYSTEMS: A complete 14-point review of systems was performed and is negative except as noted in interval history. PHYSICAL EXAMINATION: VITAL SIGNS: Temperature?97.2, B/P?148/90 Weight?175?lbs PAIN: 4 - Moderate pain ECOG Performance Status: 1 - Symptomatic; ambulatory; restricted in strenuous activity GENERAL APPEARANCE: Appears well, in no apparent distress, appropriately interactive. HEENT: Normocephalic, no temporal wasting, normal conjunctiva, no scleral icterus, normal hearing, lips without lesions, neck normal range of motion. CARDIOVASCULAR: Not assessed. PULMONARY: Normal respiratory effort, no respiratory distress or use of accessory muscles, speaking in full sentences, no tachypnea. EXTREMITIES: No pedal edema or cyanosis. SKIN: Normal skin appearance. NEUROLOGIC: Alert and oriented x4. PSHYCHIATRIC: Appropriate affect, mood normal, behavior normal, intact thought and speech. LABORATORY DATA: I have personally reviewed and interpreted each of the patient?s relevant lab tests, abnormal findings are below: Date 06/03/25 07/13/25 ??WHITE?BLOOD?COUNT?(Thou/mm3) ? 6.7 ??RED?BLOOD?COUNT?(Miln/mm3) ? 5.73 ??HEMOGLOBIN?(gm/dl) ? 18.0?HH ??HEMATOCRIT?(%) ? 53.1?H ??PLATELET?COUNT?(Thou/mm3) ? 243 ??NEUTROPHILS?%,?AUTO?(%) ? 56 ??LYMPH?%,?AUTO?(%) ? 36 ??NEUTROPHILS,?AUTO?(Thou/mm3) ? 3.8 ??GLUCOSE,RANDOM?(mg/dL) 104 127?H ??BLOOD?UREA?NITROGEN?(mg/dL) 15 12 ??CREATININE?(mg/dL) 0.90 0.90 ??SODIUM?(mmol/L) 141 141 ??POTASSIUM?(mmol/L) 4.5 3.9 ??CHLORIDE?(mmol/L) 108?H 105 ??CrCl?(CandG)?(ml/min) 97.44 97.44 ??AST/SGOT?(Unit/L) 21 19 ??ALT/SGPT?(Unit/L) 19 17 ??ALKALINE?PHOSPHATASE?(Unit/L) 77 90 ??BILIRUBIN,?TOTAL?(mg/dL) 0.8 0.8 ??PROTEIN?TOTAL?(gm/dl) 6.4 6.9 ??ALBUMIN,?SERUM?(gm/dl) 4.1 4.4 ??GLOBULIN?(gm/dl) 2.3 2.5 ??ALBUMIN/GLOBULIN?RATIO 1.8 1.8 ??CALCIUM,?SERUM?(mg/dL) 8.9 9.8 ??CALCIUM?SERUM?(CORRECTED)?(mg/dL) 8.9 9.8 ??TOTAL?IRON?BINDING?CAP?(S*)?(mcg/dL) 258 ? ??UNBOUND?IBC?(mcg/dL) 174?L ? ASSESSMENT/PLAN: Left Lower Extremity Deep Vein Thrombosis (DVT), likely provoked due to travel history Patient has been on Eliquis for 9 months without any improvement as per patient Will get JAK2 mutation testing Already scheduled for sleep study Advised to continue taking Coumadin and follow-up with Coumadin clinic Goal INR 2-3 Erythrocytosis Start phlebotomy to keep hematocrit below 45 Phlebotomize 2-3 times in a week to get goal hematocrit Patient is a high risk of blood clot and erythrocytosis make it worse Jacob phelobotmy ORDERS: Order # Description [id number] Therapeutic Phlebotomy, 1 Unit [id number] MD Follow Up 3 Months [id number] Serum Viscocity [id number] Erythropoieten Level [id number] SAMEER - 2 Mutation Quant RETURN TO CLINIC: I reviewed the diagnosis, prognosis, and recommended treatment/procedure options with the patient (and/or their legal internet sales representative), including the potential benefits, risks, side effects and alternative therapies. We also discussed the option of no treatment and the possibility of clinical trial participation, if applicable. All questions were addressed, and they demonstrated understanding. They provided informed consent to proceed with the proposed plan of care. BILLING AND COMPLIANCE: I reviewed external records from providers outside my specialty as summarized above. I spent a total of 50 minutes on this patient?s care on the day of their visit excluding time spent related to any billed procedures. This time includes time spent with the patient as well as time spent documenting in the medical record, reviewing patients records and tests, obtaining history, placing orders, communicating with other healthcare professionals, counseling the patient, family or caregiver, and/or care coordination for the diagnoses above. Electronically Signed by: {Object.Sanct_ID*PnP.NameFL@M}, {Object.Sanct_ID*PnP.Suffix@U} D: {Object.Sanct_Date} T: {Object.Sanct_Time} CC: PCP: Referring: Brant Jiménez This document was completed utilizing speech recognition software. Grammatical errors, random word insertions, pronoun errors, and incomplete sentences are an occasional consequence of this system due to software limitations, ambient noise, and hardware issues. Any formal questions or concerns about the content, text or information contained within the body of this dictation should be directly addressed to the provider for clarification.
== END 2025-07-19 23:59 | disposition home or self-care (01) ==
LOC: SCTC 09:30
PROVIDERS: PCP Family Medicine; Referring Provider Family Medicine; Visit Provider Internal Medicine Hematology & Oncology
DX: I82.402 Acute embolism and thrombosis of unspecified deep veins of left lower extremity (principal); D75.1 Secondary polycythemia
CPT/HCPCS: 99212; G0463

== ENCOUNTER → 2025-07-22 | Outpatient (CLI) | payer BC, SELFPAY ==
[2025-07-22 13:28] LABS: Basophils # (Auto) 0.1 Thou/mm3 (0.0-0.2); Basophils % (Auto) 1 % (0-2.5); Eosinophils # (Auto) 0.1 Thou/mm3 (0.0-0.5); Eosinophils % (Auto) 1 % (0-10); Hematocrit 49.1 % (41.0-53.0); Hemoglobin 16.8 g/dL (13.5-16.0); Immature Granulocytes Auto 0.01 Thou/mm3 (0.00-0.00); Lymphocytes # (Auto) 2.5 Thou/mm3 (1.0-4.8); Lymphocytes % (Auto) 32 % (10-50); Mean Corpuscular HGB Conc 34.2 g/dl (31.0-37.0); Mean Corpuscular Hemoglobin 31.8 pg (25.0-35.0); Mean Corpuscular Volume 93 fL (80-100); Monocytes # (Auto) 0.5 Thou/mm3 (0.0-0.8); Monocytes % (Auto) 7 % (0-12); Neutrophils # (Auto) 4.6 Thou/mm3 (1.8-7.7); Neutrophils % (Auto) 59 % (37-80); Nucleated Red Blood Cell # 0.00 Thou/mm3 (0.00-0.00); Nucleated Red Blood Cell % 0 /100 WBC (0); Platelet Count 235 Thou/mm3 (140-440); RDW Standard Deviation 44.3 fL (35.1-43.9); Red Blood Count 5.29 Miln/mm3 (4.50-5.90); White Blood Count 7.8 Thou/mm3 (3.8-10.6)
[2025-07-22 13:42] LABS: Alanine Aminotransferase 31 U/L (10-49); Albumin, Serum 4.1 gm/dL (3.4-4.8); Albumin/Globulin Ratio 1.8 (1.2-2.2); Alkaline Phosphatase 80 U/L (46-116); Anion Gap 9 (7-16); Aspartate Amino Transferase 22 U/L (0-34); BUN/Creatinine Ratio 18 Ratio (12-20); Bilirubin,Total 0.6 mg/dL (0.3-1.2); Blood Urea Nitrogen 14 mg/dL (9-23); Calcium 9.7 mg/dL (8.3-10.6); Calcium (Corrected) 9.7 mg/dL (8.5-10.1); Carbon Dioxide 24.8 mMol/L (20.0-31.0); Chloride 107 mMol/L (98-107); Creatinine (Component) 0.8 mg/dL (0.6-1.3); Globulin 2.3 gm/dL (2.3-3.5); Glucose 107 mg/dL (74-106); Osmolality,Calculated 281 (275-295); Potassium 4.0 mMol/L (3.4-5.1); Sodium 141 mMol/L (136-145); Total Protein 6.4 gm/dL (5.7-8.2); eGFR > 60 See Note
== END | disposition home or self-care (01) ==
LOC: SCTO 11:58
PROVIDERS: PCP Family Medicine; Referring Provider Nurse Practitioner Family; Visit Provider Nurse Practitioner Family
DX: I82.402 Acute embolism and thrombosis of unspecified deep veins of left lower extremity (principal)
CPT/HCPCS: 36415; 80053; 85025

== ENCOUNTER → 2025-07-27 | Outpatient (CLI) | payer BC, SELFPAY ==
[2025-07-27 11:36] LABS: Misc Send Out* See Sep Rpt
[2025-07-27 11:56] LABS: Basophils # (Auto) 0.1 Thou/mm3 (0.0-0.2); Basophils % (Auto) 1 % (0-2.5); Eosinophils # (Auto) 0.1 Thou/mm3 (0.0-0.5); Eosinophils % (Auto) 2 % (0-10); Hematocrit 45.5 % (41.0-53.0); Hemoglobin 15.3 g/dL (13.5-16.0); Immature Granulocytes Auto 0.02 Thou/mm3 (0.00-0.00); Lymphocytes # (Auto) 2.2 Thou/mm3 (1.0-4.8); Lymphocytes % (Auto) 33 % (10-50); Mean Corpuscular HGB Conc 33.6 g/dl (31.0-37.0); Mean Corpuscular Hemoglobin 31.0 pg (25.0-35.0); Mean Corpuscular Volume 92 fL (80-100); Monocytes # (Auto) 0.4 Thou/mm3 (0.0-0.8); Monocytes % (Auto) 6 % (0-12); Neutrophils # (Auto) 3.9 Thou/mm3 (1.8-7.7); Neutrophils % (Auto) 58 % (37-80); Nucleated Red Blood Cell # 0.00 Thou/mm3 (0.00-0.00); Nucleated Red Blood Cell % 0 /100 WBC (0); Platelet Count 258 Thou/mm3 (140-440); RDW Standard Deviation 43.5 fL (35.1-43.9); Red Blood Count 4.94 Miln/mm3 (4.50-5.90); White Blood Count 6.7 Thou/mm3 (3.8-10.6)
[2025-08-03 06:24] LABS: Erythropoietin (EPO)* 26.8 mIU/mL (2.6-18.5)
== END | disposition home or self-care (01) ==
PROVIDERS: Referring Provider Internal Medicine Hematology & Oncology; Visit Provider Internal Medicine Hematology & Oncology
DX: I82.402 Acute embolism and thrombosis of unspecified deep veins of left lower extremity (principal)
CPT/HCPCS: 36415; 82668; 85025

== ENCOUNTER 2025-07-30 19:07 | Emergency (ER) | payer BC, SELFPAY ==
[2025-07-30 19:08] VITALS: BMI 29.0
[2025-07-30 19:24] VITALS: BP 164/92; PULSE 63; RESP 18; TEMP 36.7; O2SAT 96
--- NOTE | 2025-07-30 19:43 | XR_ITS ---
Examination: CT abdomen and pelvis without contrast. Coronal 3-D reconstructions. Sagittal 2-D reconstructions. Date and time of exam:July 30, 2025, 1959 hrs. Indications: Bilateral flank pain and blood in urine today CTDI: vol (mGy): 8.38 DLP: (mGycm): 518 Technique: Axial images of the abdomen have been obtained, 3 mm slice thickness Intravenous contrast material has not been administered. Low dose protocols were performed. One or more of the following dose reduction techniques were used; automated exposure control, adjustment of the mA and/or KV according to patient size, use of iterative reconstruction technique. Findings: No focal liver or splenic lesions No gallstones No pancreatic or adrenal mass Hyperdensity in the left renal pelvis consistent with hemorrhage without definite renal calculi Normal appendix Contracted urinary bladder Mild prostatomegaly Impression: Small areas of hemorrhage in the left renal pelvis Recommend MRI abdomen kidneys follow-up pre and postcontrast to exclude underlying left renal tumor producing this hemorrhage
--- NOTE | 2025-07-30 19:44 | PD.EDRME ---
Rapid Medical Screening Exam [facility] Arrival date/time: 07/30/25 19:07 59M with history of polycythemia vera presents to ED with 1 day of flank pain and hematuria. Somewhat sudden onset, but patient denies dysuria. Separately patient cut himself shaving on his chin and it keeps bleeding. Patient recently here and was diagnosed with DVT while on Eliquis. Patient was switched to Warfarin and has been getting his INR checked weekly with his electric pile driver operator. Chief Complaint: Urogenital-Male Vital signs: Vital Signs Temperature 98.1 F 07/30/25 19:24 Pulse Rate 63 07/30/25 19:24 Respiratory Rate 18 07/30/25 19:24 Blood Pressure 164/92 H 07/30/25 19:24 Pulse Oximetry (%) 96 07/30/25 19:24 Oxygen Delivery Method Room Air 07/30/25 19:24
[2025-07-30 19:58] LABS: Collection Type, Urine Clean Catch; Squamous Epithelial Cell,Urine 0 /hpf (0-5)
[2025-07-30 20:01] LABS: Basophils # (Auto) 0.1 Thou/mm3 (0.0-0.2); Basophils % (Auto) 1 % (0-2.5); Eosinophils # (Auto) 0.2 Thou/mm3 (0.0-0.5); Eosinophils % (Auto) 2 % (0-10); Hematocrit 44.5 % (41.0-53.0); Hemoglobin 15.2 g/dL (13.5-16.0); Immature Granulocytes Auto 0.04 Thou/mm3 (0.00-0.00); Lymphocytes # (Auto) 3.1 Thou/mm3 (1.0-4.8); Lymphocytes % (Auto) 32 % (10-50); Mean Corpuscular HGB Conc 34.2 g/dl (31.0-37.0); Mean Corpuscular Hemoglobin 31.3 pg (25.0-35.0); Mean Corpuscular Volume 92 fL (80-100); Monocytes # (Auto) 0.7 Thou/mm3 (0.0-0.8); Monocytes % (Auto) 7 % (0-12); Neutrophils # (Auto) 5.5 Thou/mm3 (1.8-7.7); Neutrophils % (Auto) 57 % (37-80); Nucleated Red Blood Cell # 0.00 Thou/mm3 (0.00-0.00); Nucleated Red Blood Cell % 0 /100 WBC (0); Platelet Count 271 Thou/mm3 (140-440); RDW Standard Deviation 43.2 fL (35.1-43.9); Red Blood Count 4.85 Miln/mm3 (4.50-5.90); White Blood Count 9.6 Thou/mm3 (3.8-10.6)
[2025-07-30 20:10] LABS: Bilirubin,Urine Negative (Negative); Blood,Urine 3+ (Negative); Budding Yeast,Urine Present; Clarity,Urine Turbid (Clear/Hazy); Color,Urine Lt-Brown (Lt Yel-Yel); Glucose, Urine Negative (Negative); Ketones,Urine Negative (Negative); Leukocyte Esterase,Urine Positive (Negative); Nitrite,Urine Negative (Negative); PH,Urine 6.0 (5.0-7.0); Protein,Urine 1+ (Neg - Trace); RBC,Urine 2639 /hpf (0-3); Specific Gravity,Urine 1.011 (1.001-1.035); Urobilinogen,Urine Negative mg/dL (0.0-1.0); WBC,Urine 63 /hpf (0-5)
[2025-07-30 20:11] LABS: Culture Indicated,Urine Yes
[2025-07-30 20:18] LABS: Alanine Aminotransferase 17 U/L (10-49); Albumin, Serum 4.5 gm/dL (3.4-4.8); Albumin/Globulin Ratio 2.0 (1.2-2.2); Alkaline Phosphatase 91 U/L (46-116); Anion Gap 8 (7-16); Aspartate Amino Transferase 24 U/L (0-34); BUN/Creatinine Ratio 18 Ratio (12-20); Bilirubin,Total 0.4 mg/dL (0.3-1.2); Blood Urea Nitrogen 14 mg/dL (9-23); Calcium 9.1 mg/dL (8.3-10.6); Calcium (Corrected) 9.1 mg/dL (8.5-10.1); Carbon Dioxide 26.0 mMol/L (20.0-31.0); Chloride 106 mMol/L (98-107); Creatinine (Component) 0.8 mg/dL (0.6-1.3); Estimated Creatinine Clearance 98.5 mL/min (>60); Globulin 2.3 gm/dL (2.3-3.5); Glucose 87 mg/dL (74-106); Osmolality,Calculated 278 (275-295); Potassium 4.3 mMol/L (3.4-5.1); Sodium 140 mMol/L (136-145); Total Protein 6.8 gm/dL (5.7-8.2); eGFR > 60 See Note
--- NOTE | 2025-07-30 20:30 | EDNOTE_ITS ---
ED Male Genitalurinary RME/HPI General Chief complaint: Urogenital-Male Stated complaint: BLOOD IN URINE Time Seen by Provider: 07/31/25 06:36 Arrival date/time: 07/30/25 19:07 RME / HPI RME / HPI Narrative: 07/30/25 19:07 59M with history of polycythemia vera presents to ED with 1 day of flank pain and hematuria. Somewhat sudden onset, but patient denies dysuria. Separately patient cut himself shaving on his chin and it keeps bleeding. Patient recently here and was diagnosed with DVT while on Eliquis. Patient was switched to Warfarin and has been getting his INR checked weekly with his family and marriage counsellor. DR. FONG MAIN ED EVALUATION: Patient seen by the undersigned on 07/13/2025 for increasing thrombosin volume to LLE despite being on Eliquis and was then changed to Warfarin therapy. Patient was also diagnosed with Polycythemia vera and currently undergoing phlebotomy as treatment. Now presenting with excessive bleeding after superficial abrasion after shaving today, recently coagulated [employer]. Patient also noted gross hematuria within the last 24 hours and is unsure of passage of blood rectally. Reports mild SAINI/dizziness with standing, but no near syncope. No chest pain or shortness of breath. PMH includes Polycythemia vera, LLE DVT. Previous surgical history is non-contributory. Related Data Previous Rx's ?Medication ?Instructions ?Recorded acetaminophen 500 mg tablet 500 mg PO Q6H PRN pain #20 tabs 03/23/24 (Tylenol Extra Strength) baclofen 10 mg tablet 10 mg PO BID #20 tabs ibuprofen 600 mg tablet (IBU) 600 mg PO Q6H #20 tabs 0 03/23/24 apixaban 5 mg (74 tabs) tablets in 5 mg PO BID #74 tab s 11/17/24 a dose pack (Eliquis DVT-PE Treat 30D Start) Allergies Allergy/AdvReac Type Severity Reaction Status Date / Time No Known Allergies Allergy Verified 07/13/25 11:41 Review of Systems Review of Systems Systems Reviewed: All systems reviewed, normal except as documented ED Exam Narrative Physical exam: GEN. APPEARANCE: The patient is alert awake oriented X-3 in no distress, lying down comfortably, does not look ill/toxic. Patient has good eye contact. Patient is cooperative. VITALS: All vitals were reviewed and the pulse ox is 96% on room air which is normal according to my interpretation. HEENT: Normocephalic, atraumatic. Pupils are equal and reactive. Oral mucosa is moist. Patent Nares. Superficial abrasion to interior aspect of the chin which is coagulated with 2 Steri-strips overlying region. NECK: Supple, nontender, no thyromegaly, no meningismus, no JVD, no step offs CHEST: Symmetrical, atraumatic, and with equal expansion , Nontender on palpation no deformity and no crepitus. CARDIOVASCULAR: Heart regular rhythm no murmur or gallop rub or extra beats. LUNGS: Clear to auscultation bilaterally with symmetrical chest rise. No laboring tachypnea or wheezing. No intercostal subcostal retraction. No rales and no rhonchi. ABDOMEN: Soft, flat, nontender to palpation, no guarding or rebound tenderness. There are no abnormal masses palpated. Active and normal bowel sounds. EXTREMITIES: Nontender. No edema. No cyanosis. Patient is able to move all 4 extremities well, with full ROM and good CSM. SKIN: Warm and dry, no jaundice or rashes noted. MUSCULOSKELETAL: No lubar or midline bony tenderness. There is no CVA tenderness. No paraspinal muscle spasm or tenderness. NEURO: Patient is DACOTSA x 4, Cranial nerves II through XII grossly intact. There is no focal neurologic deficits noted. GCS is 15, PNS and VAULT TELLER appear grossly intact. PSYCHIATRIC: Patient is in normal mood and affect, cooperative, no SI or HI or hallucinations. Course Course Course Narrative: 0025: [facility] made aware of the patient?s HPI, PMHx, lab and/or radiology results. Treatment plan was discussed. Unable to accept transfer at this time as they do not have Urology available from 11PM to 6AM. Will call Urologist at 5:50 AM on our behalf. 0102: [facility] made aware of the patient?s HPI, PMHx, lab and/or radiology results. Treatment plan was discussed. Will call back. 0224: [facility] made aware of the patient?s HPI, PMHx, lab and/or radiology results. Treatment plan was discussed. 0605: Spoke with [facility]. Made aware of the patient?s HPI, PMHx, lab and/or radiology results. Treatment plan was discussed. Quality Measures none Orders Category Date Time Status CT abdomen pelvis wo con Stat Exams 07/30/25 19:[address] head/brain wo con Stat Exams 07/31/25 04:21 Taken CBC Stat Lab 07/30/25 19:54 Completed CMP [Comprehensive Metabolic Panel] Stat Lab 07/30/25 19:54 Completed INR [Prothrombin Time with INR] Stat Lab 07/30/25 19:54 Completed PT [Prothrombin Time with INR] Stat Lab 07/30/25 21:03 Completed PT [Prothrombin Time with INR] Stat Lab 07/31/25 05:55 Completed PTT [Partial Thromboplastin Time] Stat Lab 07/30/25 19:54 Completed Urinalysis, C/S if Indicated Stat Lab 07/30/25 19:54 Completed Urine Culture Stat Lab 07/30/25 19:54 Received Morphine* Inj Med 07/30/25 22:34 Discontinued 4 mg IVP X1 ONE Ondansetron Inj [Zofran Inj] Med 07/30/25 22:33 Discontinued 4 mg IVP X1 ONE Prothrombin Complex Concent [Kcentra IV] 4,000 unit Med 07/30/25 22:45 Discontinued Sterile Water 160 ml IV X1 cefTRIAXone/D5w 1gm IV premix [Rocephin/D5w 1gm IV Med 07/30/25 22:19 Discontinued premix] 1 gm in 50 ml IV X1 Vital Signs Vital signs: Vital Signs Temperature 98.1 F 07/30/25 19:24 Pulse Rate 63 07/30/25 19:24 Respiratory Rate 18 07/30/25 19:24 Blood Pressure 164/92 H 07/30/25 19:24 Pulse Oximetry (%) 96 07/30/25 19:24 Oxygen Delivery Method Room Air 07/30/25 19:24 Urogenital - Male MDM Narrative MDM Narrative:: Scribe Attestation: Amber Cast, am scribing for and in the presence of Dr. Fong. Provider Notation: Although this document has been carefully reviewed, there may still be some phonetic and other typographical errors. These errors are purely grammatical due to imperfections in the software program and should not be construed in any way to compromise the substance of the patient's medical care during this visit. Patient seen by the undersigned on 07/13/2025 for increasing thrombosin volume to LLE despite being on Eliquis and was then changed to Warfarin therapy. Patient was also diagnosed with Polycythemia vera and currently undergoing phlebotomy as treatment.Please see PE findings. Laboratory markers show INR greater than 8, PT greater than 63, PTT of 73.5. Patient received Vitamin K and will consider KCENTRA given patient's hyperanticoagulated state. This was confirmed via renal CT showing hyperdensity within left renal pelvis. Patient likely consistent with focal hemorrhage. Patient remained stable throughout entire ED course. Patient will likely require urology services and possible IR intervention. Will seek to transfer to tertiary facility. Patient data External records reviewed:: [facility] previous records (Reviewed prior ED records from 07/13/25. Patient was seen for Dvt femoral (deep venous thrombosis).) Clinical information provided by:: patient Social determinants that could affect healthcare access:: none Patient has the following chronic illnesses:: None reported How is presenting disease/condition affected by chronic disease/condition?: no chronic disease Evaluation data The following diagnostics were reviewed and interpreted by me:: lab results and radiology exam(s) Lab and/or radiology exams considered but not ordered:: None Interpretation Summary: RADIOLOGY Abdomen/Pelvis CT: Findings: No focal liver or splenic lesions No gallstones No pancreatic or adrenal mass Hyperdensity in the left renal pelvis consistent with hemorrhage without definite renal calculi Normal appendix Contracted urinary bladder Mild prostatomegaly Impression: Small areas of hemorrhage in the left renal pelvis Recommend MRI abdomen kidneys follow-up pre and postcontrast to exclude underlying left renal tumor producing this hemorrhage Medications / Prescriptions Medications or Prescriptions considered but not ordered:: None Medication administrations:: Medication Administration History Discontinued Medications Ceftriaxone Sodium/Dextrose (Rocephin/D5w 1gm Iv Premix) 1 gm in 50 mls @ 100 mls/hr IV X1 ONE Stop: 07/30/25 22:48 Last Infusion: 07/30/25 23:59 Dose: Infused Documented By: Admin: 07/30/25 22:50 Dose: 100 mls/hr Documented By: TIM Prothrombin Complex Concent ( Human) 4,000 unit/ Sterile Water 160 mls @ 480 mls/hr IV X1 ONE Stop: 07/30/25 23:04 Last Infusion: 07/31/25 00:49 Dose: Infused Documented By: Admin: 07/31/25 00:11 Dose: 480 mls/hr Documented By: TIM Morphine Sulfate (Morphine Sulf Inj 4 Mg/Ml Vial) 4 mg IVP X1 ONE Stop: 07/30/25 22:35 Last Admin: 07/30/25 22:49 Dose: 4 mg Documented By: TIM Ondansetron HCl (Ondansetron Inj 2 Mg/Ml Inj 2 Ml) 4 mg IVP X1 ONE; Protocol Stop: 07/30/25 22:34 Last Admin: 07/30/25 22:49 Dose: 4 mg Documented By: TIM See above if any. Consultations Consultation(s) initiated? (list below): Yes Consultation #1 (Physician, Specialty, Details): Hospitalist made aware of the patient?s HPI, PMHx, lab and/or radiology results. Treatment plan was discussed. Time: 20:41 Consultation #2 (Physician, Specialty, Details): Dr. Peoples made aware of the patient?s HPI, PMHx, lab and/or radiology results. Discussed treatment plan. Time: 21:04 Consultation #3 (Physician, Specialty, Details): Spoke with Dr. Peoples. Discussed treatment plan. Recommends transfer to tertiary facility for urology and possible IR intervention. Time: 22:06 Diagnosis Urogenital Male Differential Diagnosis: urethritis, prostatitis and other (Anemia, Polycythemia vera) Most likely diagnosis given after review of the tests above:: Medication induced coagulopathy, Hypoprothrombinemia, Supratherapeutic anticogaulation, and Focal left renal hemorrhage. Admission Indicated Admission indicated?: not indicated Explain why admission is indicated or not indicated:: Pending transfer Admission Request Was there a request for admission?: Yes Admission Attestation Admission request attestation: Discussed case with [] from Hospitalist service regarding admission. Discussed patients ED course, exam findings, labs, and radiology results. The Hospitalist [agrees,declines] to accept the patient for admission. Disposition Plan Disposition Plan: other (specify) (Patient signed out to oncoming ED physician at 6 AM.) Critical Care Time Critical Care Time Critical Care Time: Yes Total Critical Care Time (min.): 40 Attestation: The high probability of sudden, clinically significant deterioration in the patient?s condition required the highest level of my preparedness to intervene urgently. The services I provided to this patient were to treat and/or prevent clinically significant deterioration. Services included the following: chart data review, reviewing nursing notes and/or old charts, documentation time, senior application security consultant collaboration regarding findings and treatment options, medication orders and management, direct patient care, vital sign assessments and ordering, interpreting and reviewing diagnostic studies and lab tests. Aggregate critical care time includes only time during which I was engaged in work directly related to the patient?s care, as described above, whether at bedside or elsewhere in the Emergency Department. It did not include time spent performing other reported procedures or the services of residents, students, nurses or physician assistants. Discharge Plan Plan Service Needed for Transfer: Urology Prescriptions/Referrals Prescriptions/Med Rec: No Action Elena DVT-PE Treat 30D Start 5 mg (74 tabs) tablets,dose pack 5 mg PO BID Qty: 74 0RF ibuprofen [IBU] 600 mg tablet 600 mg PO Q6H Qty: 20 0RF acetaminophen [Tylenol Extra Strength] 500 mg tablet 500 mg PO Q6H PRN (Reason: pain) Qty: 20 0RF baclofen 10 mg tablet 10 mg PO BID Qty: 20 0RF Referrals: Brant Jiménez MD [Primary Care Provider] - In 1 week Problem List Clinical Impression: Hypoprothrombinemia, Renal hemorrhage, left, Subtherapeutic anticoagulation, UTI (urinary tract infection), Medication induced coagulopathy Patient/Caregiver Discharge Instructions Print Language: Portuguese
[2025-07-30 20:34] LABS: Partial Thromboplastin Time 73.5 Seconds (22.0-36.0)
[2025-07-30 20:35] LABS: Prothrombin Time > 63.0 Seconds (9.0-12.2)
[2025-07-30 21:05] VITALS: BP 143/86; PULSE 67; RESP 21; TEMP 36.8; O2SAT 96
[2025-07-30 21:31] LABS: Prothrombin Time > 63.0 Seconds (9.0-12.2)
[2025-07-30] MEDS: ONDANSETRON INJ 2 MG/ML INJ 2 ML 4 MG IVP (22:49)
[2025-07-30] MEDS: MORPHINE SULF INJ 4 MG/ML VIAL IVP (22:49)
[2025-07-30] MEDS: cefTRIAXone/D5w 1gm IV premix 1 GM/50 ML BAG IV (22:50)
--- NOTE | 2025-07-30 22:53 | PC.NURSE ---
I PUT A CALL OUT TO THE [facility] SPOKE WITH CB. I FAXED OVER A FS AND WE ARE PENFING A CALL BACK AT THIS TIME.
[2025-07-30 23:00] VITALS: BP 122/78; PULSE 66; RESP 18; O2SAT 94
--- NOTE | 2025-07-30 23:39 | PC.NURSE ---
I PUT A CALL OUT TO [facility] AND SPOKE WITH WELLINGTON AND PUT IN A TRANSFER REQUEST FOR UROLOGY.
[2025-07-31] MEDS: PROTHROMBIN COMPLEX CONCENT IV (00:11)
[2025-07-31] MEDS: STERILE WATER IV (00:11)
--- NOTE | 2025-07-31 00:30 | PC.NURSE ---
DR. HAM IS ON THE PHONE WITH WELLINGTON FROM [facility] AT THIS TIME FOR CLINICAL INFORMATION.
--- NOTE | 2025-07-31 00:57 | PC.NURSE ---
I CALLED THE [facility] RIGHT NOW AND SPOKE WITH YONG AND FAXED OVER THE PT INFORMATION. WE ARE PENDING A CALL BACK AT THIS TIME.
[2025-07-31 01:00] VITALS: BP 123/78; PULSE 65; RESP 15; TEMP 36.6; O2SAT 95
--- NOTE | 2025-07-31 03:10 | PC.NURSE ---
EDILBERTO FROM [facility] CALLED BACK AND DECLINED THE PT AT THIS TIME DUE TO CAPACITY.
--- NOTE | 2025-07-31 03:14 | PC.NURSE ---
I CALLED THE [facility] AT THIS TIME TO F/U ON THE TRANSFER REQUEST AND BRYANT, STATED TO ME THAT THEY ARE STILL WAITING ON A RN TO REVIEW THE CHART.
--- NOTE | 2025-07-31 04:21 | XR_ITS ---
Examination: CT brain head without contrast. 2-D sagittal coronal reconstructions Date and time of exam:July 31, 2025, 0515 hrs. Indications: Headaches dizziness episodes beginning one hour ago CTDI: vol (mGy):47.90 DLP: (mGycm):976 Technique: Multiple CT axial sections of the brain have been obtained, 5 mm slice thickness. Contrast has not been administered. 2-D sagittal, coronal reconstructions have been obtained Low dose protocols were performed. One or more of the following dose reduction techniques were used; automated exposure control, adjustment of the mA and/or KV according to patient size, use of iterative reconstruction technique. Findings: No significant ventricular enlargement. Intra-axial or extra-axial hemorrhage density is not seen. No mass effect or midline shift Basal cisterns are not remarkable. Fourth ventricle is midline. Cranial vault intact. Impression: Negative for acute hemorrhage, mass effect or midline shift If new onset dizziness persists, suggest brain MRI follow-up
[2025-07-31 05:00] VITALS: BP 109/74; PULSE 64; RESP 13; O2SAT 96
--- NOTE | 2025-07-31 05:23 | PRELIM_ITS ---
CT scan of the head without intravenous contrast (axial sections with sagittal and coronal reformats). July 31, 2025 0514 hours Clinical History: head pain Comparison: None Findings: There is no intracranial hemorrhage, extra-axial collection, mass, mass-effect or midline shift. There is good prieto-white differentiation. There is no CT evidence of acute large vascular territorial infarct. Ventricles are not enlarged or effaced. There are vascular calcifications along the carotid siphons bilaterally. Visualized paranasal sinuses and tympanomastoid cavities are clear. The bony calvarium is intact. Impression: No intracranial hemorrhage, mass-effect or midline shift. No CT evidence of acute large vascular territorial infarct. Report Electronically Signed By: Willy Carranza 07/31/2025 5:22:57 AM [EST]
--- NOTE | 2025-07-31 05:48 | PC.NURSE ---
[facility] CALLED BACK , UROLOGY DR. GONSALVES IS IN CAPACITY.
[2025-07-31 06:36] LABS: INR 1.3 (0.9-1.3); Prothrombin Time 14.2 Seconds (9.0-12.2)
--- NOTE | 2025-07-31 06:46 | XR_ITS ---
Examination: CT abdomen with intravenous contrast CT pelvis with intravenous contrast 2-D coronal reconstructions 2-D sagittal reconstructions Date and time of exam:July 31, 2025, 0710 hrs., Comparison CT abdomen pelvis without contrast 07/30/2025 2000 hrs.. CTDI: vol (mGy) 16.86 DLP: (mGycm) 733 Technique: Multiple axial sections of the abdomen and pelvis have been obtained. 64 slice high-resolution scanner used. 3 mm axial sections have been obtained, post intravenous injection 60 cc [id number] 2-D sagittal, coronal reconstructions obtained. Low dose protocols were performed. One or more of the following dose reduction techniques were used; automated exposure control, adjustment of the mA and/or KV according to patient size, use of iterative reconstruction technique. Findings: Subsegmental atelectasis at the lung bases No focal liver or splenic lesions No gallstones No pancreatic or adrenal mass Suspicious for left calyceal pelvic mass, coronal image 92, measuring 3.3 cm in dimension Normal appendix No bowel obstruction No bladder mass. No significant prostatomegaly Impression: Suspicious for transitional renal cell carcinoma in the left renal mass Recommend urology consultation and retrograde study follow-up
--- NOTE | 2025-07-31 06:55 | PC.NURSE ---
POLLY FROM THE [facility] TRANSFER KIRWIN CALLED AT THIS TIME TO INFORMED US THAT THIS PT IS WAIT-LISTED AND THEY MIGHT HAVE A BED AFTER 0900.
--- NOTE | 2025-07-31 06:57 | PC.NURSE ---
[facility] PLANS ON PRESENTING THIS CASE TO THEIR DAY SHIFT PROVIDER AFTER THEIR BED MEETING.
--- NOTE | 2025-07-31 07:05 | PC.NURSE ---
Pt was taken to CT at this time
[2025-07-31] MEDS: SODIUM CHLORIDE 0.9% 1000 ML 1,000 ML 999 ML IV (07:28)
[2025-07-31 07:53] VITALS: BP 125/79; PULSE 68; RESP 17; TEMP 36.6; O2SAT 98
--- NOTE | 2025-07-31 08:55 | PC.CC ---
Addendum entered by Mil Garcia RN 07/31/25 11:23: 1100: Spoke to [place] w/ [facility], she stated she will forward pt's information to Dr. Valverde. Dr. Valverde will arrange outpatient appointment for patient and the clinic will reach out to the patient. 1028: Received call from Viktoriya / [facility], per Dr. Bowen pt can f/u as an outpatient. Dr Wray made aware and will provide the discharge instructions. 1000: received call from [place] [facility], per Dr. Valverde pt can f/u as an outpatient at [facility], [address] [place] [address]. [phone]. Informed Dr. Wray, he asked to wait for response. Addendum entered by Mil Garcia RN 07/31/25 09:52: 0950: called Viktoriya at to inform her i resent report to fax we have on file d/t a failed transmission to Fax number she provided. She stated she provided the incorrect number, however she has received the report and will forward to the urologist. Addendum entered by Mil Garcia RN 07/31/25 09:17: 0903: received call from bedside nurse Padmini stating [facility] called requesting the ct report. Informed her that repeat CT report has been sent and urology is reviewing. I called [place] at [facility] and she confirmed she did not call. I called Viktoriya at [facility], she confirmed she called for the report to present to the urologist. report sent to [facility] Original Note: 0857: spoke to [place], she stated she sent clinicals to urology and is waiting for response. 0815: repeat ct of abd/pelvis report sent to [facility]. 0805: called and spoke to [place] at [facility] TC, she stated she spoke to Dr. Wray at 0748 today for update. She requested repeat CT report. 0732: received hand off from ASHISH Doss to continue to transfer patient for urology/IR for hematuria. Will review notes of which facilities were contacted previously.
--- NOTE | 2025-07-31 08:59 | EDNOTE_ITS ---
Emergency Room Addendum <Abram Wray MD - Last Filed: 07/31/25 09:02> Addendum Narrative: Care assumed from Dr. Day. Past medical, surgical, social and family history reviewed. Vitals and home medications reviewed. Results and treatment plan discussed. I will assume the care of the patient at this time and will follow the patient. Please refer to the emergency department record for history and examination from initial visit. Dr. Espinoza Garrett did speak to Dr. Kamara of urology at [facility]. Kcentra was given to correct the prolonged INR and the INR corrected to 1.2. Repeat CT scan with contrast did not show the bleed which showed a left renal mass suspicious for transitional renal cell carcinoma. I spoke to the transfer nurse and she is sending these results to the transfer nurse and they will review the case for potential transfer. Patient remained stable while under my care. <Katherine Chacon - Last Filed: 07/31/25 10:55> Addendum Narrative: Care assumed from Dr. Day. Past medical, surgical, social and family history reviewed. Vitals and home medications reviewed. Results and treatment plan discussed. I will assume the care of the patient at this time and will follow the patient. Please refer to the emergency department record for history and examination from initial visit. Dr. Espinoza Garrett did speak to Dr. Kamara of urology at [facility]. Kcentra was given to correct the prolonged INR and the INR corrected to 1.2. Repeat CT scan with contrast did not show the bleed which showed a left renal mass suspicious for transitional renal cell carcinoma. I spoke to the transfer nurse and she is sending these results to the transfer nurse and they will review the case for potential transfer. Patient remained stable while under my care. 1015: Notified by transfer nurse that urologist Dr. Valverde at [facility] recommends ureteroscopy as an outpatient with them at their [facility]. [address] [place] [address] Office # ([phone]. At this time pending call back from [facility]. 1030: Notified by transfer nurse that urologist Dr. Kamara at [facility] recommends outpatient follow-up. Patient will be discharged home with instructions to call the urology office and consult his radio rigger oncologist. Advised he discuss with heme-onc that he was given Kcentra and his INR today is 1.2 off the blood thinners.
[2025-07-31 10:08] VITALS: BP 117/78; PULSE 62; RESP 16; TEMP 37.1; O2SAT 95
[2025-07-31 12:17] VITALS: BP 122/75; PULSE 74; RESP 17; TEMP 36.8; O2SAT 95
== END 2025-07-31 13:18 | disposition home or self-care (01) ==
PROVIDERS: Emergency Medicine; Physician Assistant; Emergency Provider Family Medicine; PCP Family Medicine
DX: N39.0 Urinary tract infection, site not specified (principal); D68.2 Hereditary deficiency of other clotting factors; N28.89 Other specified disorders of kidney and ureter; D45 Polycythemia vera; R51.9 Headache, unspecified
CPT/HCPCS: 36415; 70450; 74176; 74177; 80053; 81001; 85025; 85610; 85730; 87086; 96365; 96366; 96375; 99284; A4216; A4649; J0696; J2270; J2405; J7030; J7168; Q9967

== ENCOUNTER → 2025-08-03 | Outpatient (CLI) | payer BC, SELFPAY ==
[2025-08-03 11:32] LABS: Basophils # (Auto) 0.1 Thou/mm3 (0.0-0.2); Basophils % (Auto) 1 % (0-2.5); Eosinophils # (Auto) 0.2 Thou/mm3 (0.0-0.5); Eosinophils % (Auto) 3 % (0-10); Hematocrit 45.6 % (41.0-53.0); Hemoglobin 15.5 g/dL (13.5-16.0); Immature Granulocytes Auto 0.02 Thou/mm3 (0.00-0.00); Lymphocytes # (Auto) 2.1 Thou/mm3 (1.0-4.8); Lymphocytes % (Auto) 35 % (10-50); Mean Corpuscular HGB Conc 34.0 g/dl (31.0-37.0); Mean Corpuscular Hemoglobin 31.2 pg (25.0-35.0); Mean Corpuscular Volume 92 fL (80-100); Monocytes # (Auto) 0.4 Thou/mm3 (0.0-0.8); Monocytes % (Auto) 6 % (0-12); Neutrophils # (Auto) 3.4 Thou/mm3 (1.8-7.7); Neutrophils % (Auto) 56 % (37-80); Nucleated Red Blood Cell # 0.00 Thou/mm3 (0.00-0.00); Nucleated Red Blood Cell % 0 /100 WBC (0); Platelet Count 286 Thou/mm3 (140-440); RDW Standard Deviation 44.5 fL (35.1-43.9); Red Blood Count 4.97 Miln/mm3 (4.50-5.90); White Blood Count 6.1 Thou/mm3 (3.8-10.6)
== END | disposition home or self-care (01) ==
PROVIDERS: PCP Family Medicine; Referring Provider Internal Medicine Hematology & Oncology; Visit Provider Internal Medicine Hematology & Oncology
DX: I82.402 Acute embolism and thrombosis of unspecified deep veins of left lower extremity (principal)
CPT/HCPCS: 36415; 85025

== ENCOUNTER → 2025-08-05 | Outpatient (CLI) | payer BC, SELFPAY ==
[2025-08-05 13:14] LABS: Basophils # (Auto) 0.0 Thou/mm3 (0.0-0.2); Basophils % (Auto) 1 % (0-2.5); Eosinophils # (Auto) 0.1 Thou/mm3 (0.0-0.5); Eosinophils % (Auto) 1 % (0-10); Hematocrit 45.3 % (41.0-53.0); Hemoglobin 15.2 g/dL (13.5-16.0); Immature Granulocytes Auto 0.01 Thou/mm3 (0.00-0.00); Lymphocytes # (Auto) 2.4 Thou/mm3 (1.0-4.8); Lymphocytes % (Auto) 29 % (10-50); Mean Corpuscular HGB Conc 33.6 g/dl (31.0-37.0); Mean Corpuscular Hemoglobin 31.0 pg (25.0-35.0); Mean Corpuscular Volume 92 fL (80-100); Monocytes # (Auto) 0.4 Thou/mm3 (0.0-0.8); Monocytes % (Auto) 5 % (0-12); Neutrophils # (Auto) 5.2 Thou/mm3 (1.8-7.7); Neutrophils % (Auto) 64 % (37-80); Nucleated Red Blood Cell # 0.00 Thou/mm3 (0.00-0.00); Nucleated Red Blood Cell % 0 /100 WBC (0); Platelet Count 307 Thou/mm3 (140-440); RDW Standard Deviation 46.0 fL (35.1-43.9); Red Blood Count 4.91 Miln/mm3 (4.50-5.90); White Blood Count 8.1 Thou/mm3 (3.8-10.6)
[2025-08-05 13:31] LABS: Alanine Aminotransferase 252 U/L (10-49); Albumin, Serum 4.5 gm/dL (3.4-4.8); Albumin/Globulin Ratio 1.8 (1.2-2.2); Alkaline Phosphatase 130 U/L (46-116); Anion Gap 10 (7-16); Aspartate Amino Transferase 94 U/L (0-34); BUN/Creatinine Ratio 16 Ratio (12-20); Bilirubin,Total 0.9 mg/dL (0.3-1.2); Blood Urea Nitrogen 16 mg/dL (9-23); Calcium 9.6 mg/dL (8.3-10.6); Calcium (Corrected) 9.6 mg/dL (8.5-10.1); Carbon Dioxide 27.2 mMol/L (20.0-31.0); Chloride 105 mMol/L (98-107); Creatinine (Component) 1.0 mg/dL (0.6-1.3); Globulin 2.5 gm/dL (2.3-3.5); Glucose 119 mg/dL (74-106); Osmolality,Calculated 285 (275-295); Potassium 4.3 mMol/L (3.4-5.1); Sodium 142 mMol/L (136-145); Total Protein 7.0 gm/dL (5.7-8.2); eGFR > 60 See Note
== END | disposition home or self-care (01) ==
LOC: SCTO 12:27
PROVIDERS: PCP Family Medicine; Referring Provider Nurse Practitioner Family; Visit Provider Nurse Practitioner Family
DX: I82.402 Acute embolism and thrombosis of unspecified deep veins of left lower extremity (principal)
CPT/HCPCS: 36415; 80053; 85025

== ENCOUNTER → 2025-08-10 | Outpatient (CLI) | payer BC, SELFPAY ==
[2025-08-10 13:23] LABS: Misc Send Out* See Sep Rpt
[2025-08-10 14:47] LABS: Basophils # (Auto) 0.1 Thou/mm3 (0.0-0.2); Basophils % (Auto) 1 % (0-2.5); Eosinophils # (Auto) 0.1 Thou/mm3 (0.0-0.5); Eosinophils % (Auto) 1 % (0-10); Hematocrit 46.2 % (41.0-53.0); Hemoglobin 15.8 g/dL (13.5-16.0); Immature Granulocytes Auto 0.02 Thou/mm3 (0.00-0.00); Lymphocytes # (Auto) 2.2 Thou/mm3 (1.0-4.8); Lymphocytes % (Auto) 29 % (10-50); Mean Corpuscular HGB Conc 34.2 g/dl (31.0-37.0); Mean Corpuscular Hemoglobin 31.7 pg (25.0-35.0); Mean Corpuscular Volume 93 fL (80-100); Monocytes # (Auto) 0.4 Thou/mm3 (0.0-0.8); Monocytes % (Auto) 6 % (0-12); Neutrophils # (Auto) 4.9 Thou/mm3 (1.8-7.7); Neutrophils % (Auto) 63 % (37-80); Nucleated Red Blood Cell # 0.00 Thou/mm3 (0.00-0.00); Nucleated Red Blood Cell % 0 /100 WBC (0); Platelet Count 277 Thou/mm3 (140-440); RDW Standard Deviation 44.6 fL (35.1-43.9); Red Blood Count 4.98 Miln/mm3 (4.50-5.90); White Blood Count 7.6 Thou/mm3 (3.8-10.6)
[2025-08-10 15:00] LABS: Alanine Aminotransferase 62 U/L (10-49); Albumin, Serum 4.2 gm/dL (3.4-4.8); Albumin/Globulin Ratio 1.7 (1.2-2.2); Alkaline Phosphatase 100 U/L (46-116); Anion Gap 9 (7-16); Aspartate Amino Transferase 22 U/L (0-34); BUN/Creatinine Ratio 13 Ratio (12-20); Bilirubin,Total 0.7 mg/dL (0.3-1.2); Blood Urea Nitrogen 13 mg/dL (9-23); Calcium 9.5 mg/dL (8.3-10.6); Calcium (Corrected) 9.5 mg/dL (8.5-10.1); Carbon Dioxide 26.2 mMol/L (20.0-31.0); Chloride 108 mMol/L (98-107); Creatinine (Component) 1.0 mg/dL (0.6-1.3); Globulin 2.5 gm/dL (2.3-3.5); Glucose 143 mg/dL (74-106); Osmolality,Calculated 287 (275-295); Potassium 3.8 mMol/L (3.4-5.1); Sodium 143 mMol/L (136-145); Total Protein 6.7 gm/dL (5.7-8.2); eGFR > 60 See Note
[2025-08-17 07:11] LABS: Erythropoietin (EPO)* 20.2 mIU/mL (2.6-18.5)
== END | disposition home or self-care (01) ==
LOC: SCTO 13:06
PROVIDERS: PCP Family Medicine; Referring Provider Internal Medicine Hematology & Oncology; Visit Provider Internal Medicine Hematology & Oncology
DX: I82.402 Acute embolism and thrombosis of unspecified deep veins of left lower extremity (principal)
CPT/HCPCS: 36415; 80053; 82668; 85025

== ENCOUNTER → 2025-08-12 | Outpatient (CLI) | payer BC, SELFPAY ==
[2025-08-12 16:50] LABS: Basophils # (Auto) 0.1 Thou/mm3 (0.0-0.2); Basophils % (Auto) 1 % (0-2.5); Eosinophils # (Auto) 0.1 Thou/mm3 (0.0-0.5); Eosinophils % (Auto) 1 % (0-10); Hematocrit 45.6 % (41.0-53.0); Hemoglobin 15.5 g/dL (13.5-16.0); Immature Granulocytes Auto 0.01 Thou/mm3 (0.00-0.00); Lymphocytes # (Auto) 2.5 Thou/mm3 (1.0-4.8); Lymphocytes % (Auto) 33 % (10-50); Mean Corpuscular HGB Conc 34.0 g/dl (31.0-37.0); Mean Corpuscular Hemoglobin 31.5 pg (25.0-35.0); Mean Corpuscular Volume 93 fL (80-100); Monocytes # (Auto) 0.6 Thou/mm3 (0.0-0.8); Monocytes % (Auto) 8 % (0-12); Neutrophils # (Auto) 4.3 Thou/mm3 (1.8-7.7); Neutrophils % (Auto) 58 % (37-80); Nucleated Red Blood Cell # 0.00 Thou/mm3 (0.00-0.00); Nucleated Red Blood Cell % 0 /100 WBC (0); Platelet Count 268 Thou/mm3 (140-440); RDW Standard Deviation 44.2 fL (35.1-43.9); Red Blood Count 4.92 Miln/mm3 (4.50-5.90); White Blood Count 7.5 Thou/mm3 (3.8-10.6)
[2025-08-12 17:03] LABS: Alanine Aminotransferase 40 U/L (10-49); Albumin, Serum 4.4 gm/dL (3.4-4.8); Albumin/Globulin Ratio 1.8 (1.2-2.2); Alkaline Phosphatase 100 U/L (46-116); Anion Gap 7 (7-16); Aspartate Amino Transferase 22 U/L (0-34); BUN/Creatinine Ratio 14 Ratio (12-20); Bilirubin,Total 0.7 mg/dL (0.3-1.2); Blood Urea Nitrogen 14 mg/dL (9-23); Calcium 9.3 mg/dL (8.3-10.6); Calcium (Corrected) 9.3 mg/dL (8.5-10.1); Carbon Dioxide 27.4 mMol/L (20.0-31.0); Chloride 106 mMol/L (98-107); Creatinine (Component) 1.0 mg/dL (0.6-1.3); Globulin 2.4 gm/dL (2.3-3.5); Glucose 87 mg/dL (74-106); Osmolality,Calculated 278 (275-295); Potassium 4.5 mMol/L (3.4-5.1); Sodium 140 mMol/L (136-145); Total Protein 6.8 gm/dL (5.7-8.2); eGFR > 60 See Note
[2025-08-12 17:08] LABS: D-Dimer < 250 ng/mL (<600)
== END | disposition home or self-care (01) ==
LOC: SCTO 14:09
PROVIDERS: PCP Family Medicine; Referring Provider Internal Medicine Hematology & Oncology; Visit Provider Internal Medicine Hematology & Oncology
DX: I82.402 Acute embolism and thrombosis of unspecified deep veins of left lower extremity (principal)
CPT/HCPCS: 36415; 80053; 85025; 85379

== ENCOUNTER 2025-08-13 13:21 | Outpatient (RCR) | payer BC, SELFPAY ==
--- NOTE | 2025-08-17 00:17 | CTCFLWUP_ITS ---
Patient: SANDRA PRADHAN : 1965 Page 3 of 4 FOLLOW UP NOTE DATE OF SERVICE: 08/11/2025 NAME: SANDRA PRADHAN ACCOUNT: [id number] : 1965 AGE: 59 INTERVAL HISTORY: Persistent DVT ONCOLOGY HISTORY: DIAGNOSIS: #1 deep vein thrombosis #2 erythrocytosis TREATMENT HISTORY: Care?Plan Start?Date Cycle Day Intent HISTORY OF PRESENT ILLNESS: 59-year-old male was diagnosed with a lower extremity DVT left in 2023. At that time he followed with him matrix drier tender in [place]. He was started on Eliquis. Patient has been very compliant and has been taking Eliquis. Per patient his leg never has showed any improvement. He has been taking it for about 9 months. Patient had been having pain in his leg. He had an ultrasound which showed persistent clot in the left leg. Patient have a nonocclusive clot in the right leg and CT angiogram were all negative. Patient denies any shortness of breath Patient have never donated blood or had phlebotomy. Patient have a known diagnosis of erythrocytosis. Unfortunately patient never did phlebotomy which likely led to his clot formation along with history of travel in the past which might have induced first clot formation. Patient was started on Coumadin. He was having bruising on his face. Patient went to the emergency room and where he was given vitamin K to reverse anticoagulation and Coumadin was held. Patient is seen in the clinic today with swelling of his leg. Patient says that he could not follow-up with his primary care. 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 Tobacco?Use:?Denies ETOH?Use:?Socailly Drug?Note:?Denies Social?History?Note:?Lives?with? MEDICATIONS: 1. losartan - 50 mg 1 tab Daily 2. Lovenox - 80 mg/0.8 mL 80 mg Every 12 Hours 3. Lovenox - 80 mg/0.8 mL 0.8 mL .8 ml twice daily 4. multivitamin - 1 tab Daily 5. warfarin - 10 mg 2 tab Daily Medications Last Reconciled by Isi Murphy MD on 08/11/2025 ALLERGIES: No Known Drug Allergies REVIEW OF SYSTEMS: A complete 14-point review of systems was performed and is negative except as noted in interval history. PHYSICAL EXAMINATION: VITAL SIGNS: Temperature?95.6, B/P?132/76, Oxygen?Saturation?96% Weight?175?lbs (Change?since?07/23/25:?-4.2?lbs) PAIN: 0 - No pain ECOG Performance Status: 0 - Asymptomatic and fully active GENERAL APPEARANCE: Appears well, in no apparent distress, appropriately interactive. HEENT: Normocephalic, no temporal wasting, normal conjunctiva, no scleral icterus, normal hearing, lips without lesions, neck normal range of motion. CARDIOVASCULAR: Not assessed. PULMONARY: Normal respiratory effort, no respiratory distress or use of accessory muscles, speaking in full sentences, no tachypnea. EXTREMITIES: No pedal edema or cyanosis. SKIN: Normal skin appearance. NEUROLOGIC: Alert and oriented x4. PSHYCHIATRIC: Appropriate affect, mood normal, behavior normal, intact thought and speech. LABORATORY DATA: I have personally reviewed and interpreted each of the patient?s relevant lab tests, abnormal findings are below: Date 08/10/25 08/12/25 ??WHITE?BLOOD?COUNT?(Thou/mm3) 7.6 7.5 ??RED?BLOOD?COUNT?(Miln/mm3) 4.98 4.92 ??HEMOGLOBIN?(gm/dl) 15.8 15.5 ??HEMATOCRIT?(%) 46.2 45.6 ??PLATELET?COUNT?(Thou/mm3) 277 268 ??NEUTROPHILS?%,?AUTO?(%) 63 58 ??LYMPH?%,?AUTO?(%) 29 33 ??NEUTROPHILS,?AUTO?(Thou/mm3) 4.9 4.3 ??GLUCOSE,RANDOM?(mg/dL) 143?H 87 ??BLOOD?UREA?NITROGEN?(mg/dL) 13 14 ??CREATININE?(mg/dL) 1.00 1.00 ??SODIUM?(mmol/L) 143 140 ??POTASSIUM?(mmol/L) 3.8 4.5 ??CHLORIDE?(mmol/L) 108?H 106 ??CrCl?(CandG)?(ml/min) 77.76 88.20 ??AST/SGOT?(Unit/L) 22 22 ??ALT/SGPT?(Unit/L) 62?H 40 ??ALKALINE?PHOSPHATASE?(Unit/L) 100 100 ??BILIRUBIN,?TOTAL?(mg/dL) 0.7 0.7 ??PROTEIN?TOTAL?(gm/dl) 6.7 6.8 ??ALBUMIN,?SERUM?(gm/dl) 4.2 4.4 ??GLOBULIN?(gm/dl) 2.5 2.4 ??ALBUMIN/GLOBULIN?RATIO 1.7 1.8 ??CALCIUM,?SERUM?(mg/dL) 9.5 9.3 ??CALCIUM?SERUM?(CORRECTED)?(mg/dL) 9.5 9.3 ASSESSMENT/PLAN: Left Lower Extremity Deep Vein Thrombosis (DVT), likely provoked due to travel history Patient had erythrocytosis in the past JAK2 negative Will do phlebotomy to keep hematocrit below 45 Lovenox ordered Patient was unable to tolerate Coumadin as there is no Coumadin clinic to follow-up with INR Patient had mild bleeding from the face and was seen in the ER. Unfortunately patient was given vitamin K and his Coumadin was completely held and advised to follow-up with the primary care Patient is today seen by me Advised to start Lovenox ANA MARIA Will send to Dr. Bolaños to follow-up with hematology Advised patient that I am available on as needed basis but he should follow-up with hematology for his DVT ORDERS: Order # Description [id number] CBC with Auto Diff + Comprehensive Metabolic Panel - 12 + [id number] RETURN TO CLINIC: I reviewed the diagnosis, prognosis, and recommended treatment/procedure options with the patient (and/or their legal appeals representative), including the potential benefits, risks, side effects and alternative therapies. We also discussed the option of no treatment and the possibility of clinical trial participation, if applicable. All questions were addressed, and they demonstrated understanding. They provided informed consent to proceed with the proposed plan of care. BILLING AND COMPLIANCE: I reviewed external records from providers outside my specialty as summarized above. I spent a total of 50 minutes on this patient?s care on the day of their visit excluding time spent related to any billed procedures. This time includes time spent with the patient as well as time spent documenting in the medical record, reviewing patients records and tests, obtaining history, placing orders, communicating with other healthcare professionals, counseling the patient, family or caregiver, and/or care coordination for the diagnoses above. Electronically Signed by: {Object.Sanct_ID*PnP.NameFL@M}, {Object.Sanct_ID*PnP.Suffix@U} D: {Object.Sanct_Date} T: {Object.Sanct_Time} CC: PCP: Referring: Brant Jiménez This document was completed utilizing speech recognition software. Grammatical errors, random word insertions, pronoun errors, and incomplete sentences are an occasional consequence of this system due to software limitations, ambient noise, and hardware issues. Any formal questions or concerns about the content, text or information contained within the body of this dictation should be directly addressed to the provider for clarification.
== END 2025-08-18 23:59 | disposition home or self-care (01) ==
LOC: SCTC 13:21
PROVIDERS: PCP Family Medicine; Referring Provider Family Medicine; Visit Provider Internal Medicine Hematology & Oncology
DX: D75.1 Secondary polycythemia (principal); Z86.718 Personal history of other venous thrombosis and embolism; Z79.01 Long term (current) use of anticoagulants
CPT/HCPCS: 99195; 99212; G0463

== ENCOUNTER → 2025-08-19 | Outpatient (CLI) | payer BC, SELFPAY ==
[2025-08-19 13:33] LABS: Basophils # (Auto) 0.1 Thou/mm3 (0.0-0.2); Basophils % (Auto) 1 % (0-2.5); Eosinophils # (Auto) 0.1 Thou/mm3 (0.0-0.5); Eosinophils % (Auto) 2 % (0-10); Hematocrit 44.5 % (41.0-53.0); Hemoglobin 14.7 g/dL (13.5-16.0); Immature Granulocytes Auto 0.03 Thou/mm3 (0.00-0.00); Lymphocytes # (Auto) 2.9 Thou/mm3 (1.0-4.8); Lymphocytes % (Auto) 41 % (10-50); Mean Corpuscular HGB Conc 33.0 g/dl (31.0-37.0); Mean Corpuscular Hemoglobin 31.3 pg (25.0-35.0); Mean Corpuscular Volume 95 fL (80-100); Monocytes # (Auto) 0.6 Thou/mm3 (0.0-0.8); Monocytes % (Auto) 8 % (0-12); Neutrophils # (Auto) 3.4 Thou/mm3 (1.8-7.7); Neutrophils % (Auto) 48 % (37-80); Nucleated Red Blood Cell # 0.00 Thou/mm3 (0.00-0.00); Nucleated Red Blood Cell % 0 /100 WBC (0); Platelet Count 258 Thou/mm3 (140-440); RDW Standard Deviation 45.5 fL (35.1-43.9); Red Blood Count 4.70 Miln/mm3 (4.50-5.90); White Blood Count 7.1 Thou/mm3 (3.8-10.6)
[2025-08-19 13:56] LABS: Alanine Aminotransferase 42 U/L (10-49); Albumin, Serum 4.4 gm/dL (3.4-4.8); Albumin/Globulin Ratio 1.9 (1.2-2.2); Alkaline Phosphatase 79 U/L (46-116); Anion Gap 7 (7-16); Aspartate Amino Transferase 34 U/L (0-34); BUN/Creatinine Ratio 10 Ratio (12-20); Bilirubin,Total 0.6 mg/dL (0.3-1.2); Blood Urea Nitrogen 9 mg/dL (9-23); Calcium 9.2 mg/dL (8.3-10.6); Calcium (Corrected) 9.2 mg/dL (8.5-10.1); Carbon Dioxide 26.6 mMol/L (20.0-31.0); Chloride 107 mMol/L (98-107); Creatinine (Component) 0.9 mg/dL (0.6-1.3); Globulin 2.3 gm/dL (2.3-3.5); Glucose 95 mg/dL (74-106); Osmolality,Calculated 279 (275-295); Potassium 4.4 mMol/L (3.4-5.1); Sodium 141 mMol/L (136-145); Total Protein 6.7 gm/dL (5.7-8.2); eGFR > 60 See Note
[2025-08-19 14:04] LABS: D-Dimer < 250 ng/mL (<600)
== END | disposition home or self-care (01) ==
LOC: SCTO 12:26
PROVIDERS: PCP Family Medicine; Referring Provider Internal Medicine Hematology & Oncology; Visit Provider Internal Medicine Hematology & Oncology
DX: I82.402 Acute embolism and thrombosis of unspecified deep veins of left lower extremity (principal)
CPT/HCPCS: 36415; 80053; 85025; 85379

== ENCOUNTER → 2025-08-27 | Outpatient (CLI) | payer BC, SELFPAY ==
[2025-08-27 11:31] LABS: Basophils # (Auto) 0.1 Thou/mm3 (0.0-0.2); Basophils % (Auto) 1 % (0-2.5); Eosinophils # (Auto) 0.1 Thou/mm3 (0.0-0.5); Eosinophils % (Auto) 2 % (0-10); Hematocrit 44.6 % (41.0-53.0); Hemoglobin 14.8 g/dL (13.5-16.0); Immature Granulocytes Auto 0.02 Thou/mm3 (0.00-0.00); Lymphocytes # (Auto) 2.7 Thou/mm3 (1.0-4.8); Lymphocytes % (Auto) 43 % (10-50); Mean Corpuscular HGB Conc 33.2 g/dl (31.0-37.0); Mean Corpuscular Hemoglobin 31.0 pg (25.0-35.0); Mean Corpuscular Volume 94 fL (80-100); Monocytes # (Auto) 0.5 Thou/mm3 (0.0-0.8); Monocytes % (Auto) 8 % (0-12); Neutrophils # (Auto) 2.9 Thou/mm3 (1.8-7.7); Neutrophils % (Auto) 46 % (37-80); Nucleated Red Blood Cell # 0.00 Thou/mm3 (0.00-0.00); Nucleated Red Blood Cell % 0 /100 WBC (0); Platelet Count 277 Thou/mm3 (140-440); RDW Standard Deviation 44.3 fL (35.1-43.9); Red Blood Count 4.77 Miln/mm3 (4.50-5.90); White Blood Count 6.4 Thou/mm3 (3.8-10.6)
[2025-08-27 11:47] LABS: Alanine Aminotransferase 32 U/L (10-49); Albumin, Serum 4.6 gm/dL (3.4-4.8); Albumin/Globulin Ratio 1.9 (1.2-2.2); Alkaline Phosphatase 72 U/L (46-116); Anion Gap 9 (7-16); Aspartate Amino Transferase 18 U/L (0-34); BUN/Creatinine Ratio 12 Ratio (12-20); Bilirubin,Total 0.7 mg/dL (0.3-1.2); Blood Urea Nitrogen 11 mg/dL (9-23); Calcium 9.6 mg/dL (8.3-10.6); Calcium (Corrected) 9.6 mg/dL (8.5-10.1); Carbon Dioxide 25.2 mMol/L (20.0-31.0); Chloride 105 mMol/L (98-107); Creatinine (Component) 0.9 mg/dL (0.6-1.3); Globulin 2.4 gm/dL (2.3-3.5); Glucose 92 mg/dL (74-106); Osmolality,Calculated 276 (275-295); Potassium 4.3 mMol/L (3.4-5.1); Sodium 139 mMol/L (136-145); Total Protein 7.0 gm/dL (5.7-8.2); eGFR > 60 See Note
== END | disposition home or self-care (01) ==
LOC: SCTO 10:04
PROVIDERS: PCP Family Medicine; Referring Provider Internal Medicine Hematology & Oncology; Visit Provider Internal Medicine Hematology & Oncology
DX: I82.402 Acute embolism and thrombosis of unspecified deep veins of left lower extremity (principal)
CPT/HCPCS: 36415; 80053; 85025

== ENCOUNTER → 2025-09-01 | Outpatient (CLI) | payer BC, SELFPAY ==
[2025-09-01 13:58] LABS: Basophils # (Auto) 0.1 Thou/mm3 (0.0-0.2); Basophils % (Auto) 1 % (0-2.5); Eosinophils # (Auto) 0.1 Thou/mm3 (0.0-0.5); Eosinophils % (Auto) 1 % (0-10); Hematocrit 43.7 % (41.0-53.0); Hemoglobin 14.9 g/dL (13.5-16.0); Immature Granulocytes Auto 0.02 Thou/mm3 (0.00-0.00); Lymphocytes # (Auto) 2.4 Thou/mm3 (1.0-4.8); Lymphocytes % (Auto) 36 % (10-50); Mean Corpuscular HGB Conc 34.1 g/dl (31.0-37.0); Mean Corpuscular Hemoglobin 31.8 pg (25.0-35.0); Mean Corpuscular Volume 93 fL (80-100); Monocytes # (Auto) 0.6 Thou/mm3 (0.0-0.8); Monocytes % (Auto) 8 % (0-12); Neutrophils # (Auto) 3.7 Thou/mm3 (1.8-7.7); Neutrophils % (Auto) 54 % (37-80); Nucleated Red Blood Cell # 0.00 Thou/mm3 (0.00-0.00); Nucleated Red Blood Cell % 0 /100 WBC (0); Platelet Count 260 Thou/mm3 (140-440); RDW Standard Deviation 44.1 fL (35.1-43.9); Red Blood Count 4.69 Miln/mm3 (4.50-5.90); White Blood Count 6.8 Thou/mm3 (3.8-10.6)
[2025-09-01 14:12] LABS: D-Dimer < 250 ng/mL (<600)
[2025-09-01 14:22] LABS: Alanine Aminotransferase 27 U/L (10-49); Albumin, Serum 4.4 gm/dL (3.4-4.8); Albumin/Globulin Ratio 2.0 (1.2-2.2); Alkaline Phosphatase 79 U/L (46-116); Anion Gap 10 (7-16); Aspartate Amino Transferase 27 U/L (0-34); BUN/Creatinine Ratio 12 Ratio (12-20); Bilirubin,Total 0.5 mg/dL (0.3-1.2); Blood Urea Nitrogen 11 mg/dL (9-23); Calcium 8.9 mg/dL (8.3-10.6); Calcium (Corrected) 8.9 mg/dL (8.5-10.1); Carbon Dioxide 24.3 mMol/L (20.0-31.0); Chloride 106 mMol/L (98-107); Creatinine (Component) 0.9 mg/dL (0.6-1.3); Globulin 2.2 gm/dL (2.3-3.5); Glucose 111 mg/dL (74-106); Osmolality,Calculated 279 (275-295); Potassium 4.0 mMol/L (3.4-5.1); Sodium 140 mMol/L (136-145); Total Protein 6.6 gm/dL (5.7-8.2); eGFR > 60 See Note
== END | disposition home or self-care (01) ==
LOC: SCTO 13:07
PROVIDERS: PCP Family Medicine; Referring Provider Internal Medicine Hematology & Oncology; Visit Provider Internal Medicine Hematology & Oncology
DX: I82.402 Acute embolism and thrombosis of unspecified deep veins of left lower extremity (principal)
CPT/HCPCS: 36415; 80053; 85025; 85379

== ENCOUNTER → 2025-09-08 | Outpatient (CLI) | payer BC, SELFPAY ==
--- NOTE | 2025-09-08 15:22 | XR_ITS ---
EXAMINATION: Bilateral venous Doppler sonography TECHNIQUE: Grayscale sonographic images common femoral superficial femoral popliteal peroneal posterior tibial and greater saphenous veins bilaterally Date and time: September 08, 2025, 1525 hours INDICATIONS: Positive for nonocclusive DVT mid and distal left superficial femoral vein and left popliteal and peroneal vein on venous Doppler July 13, 2025, undergoing anticoagulation FINDINGS: Positive for nonocclusive thrombus in the left popliteal vein Remaining left deep venous system unremarkable Normal right lower extremity venous system IMPRESSION: Positive for nonocclusive thrombus in the left popliteal vein
[2025-09-08 16:32] LABS: Basophils # (Auto) 0.1 Thou/mm3 (0.0-0.2); Basophils % (Auto) 1 % (0-2.5); Eosinophils # (Auto) 0.1 Thou/mm3 (0.0-0.5); Eosinophils % (Auto) 1 % (0-10); Hematocrit 43.5 % (41.0-53.0); Hemoglobin 14.8 g/dL (13.5-16.0); Immature Granulocytes Auto 0.02 Thou/mm3 (0.00-0.00); Lymphocytes # (Auto) 2.4 Thou/mm3 (1.0-4.8); Lymphocytes % (Auto) 30 % (10-50); Mean Corpuscular HGB Conc 34.0 g/dl (31.0-37.0); Mean Corpuscular Hemoglobin 31.2 pg (25.0-35.0); Mean Corpuscular Volume 92 fL (80-100); Monocytes # (Auto) 0.6 Thou/mm3 (0.0-0.8); Monocytes % (Auto) 8 % (0-12); Neutrophils # (Auto) 4.9 Thou/mm3 (1.8-7.7); Neutrophils % (Auto) 61 % (37-80); Nucleated Red Blood Cell # 0.00 Thou/mm3 (0.00-0.00); Nucleated Red Blood Cell % 0 /100 WBC (0); Platelet Count 275 Thou/mm3 (140-440); RDW Standard Deviation 42.4 fL (35.1-43.9); Red Blood Count 4.74 Miln/mm3 (4.50-5.90); White Blood Count 8.1 Thou/mm3 (3.8-10.6)
[2025-09-08 16:49] LABS: D-Dimer < 250 ng/mL (<600)
[2025-09-08 16:53] LABS: Alanine Aminotransferase 22 U/L (10-49); Albumin, Serum 4.5 gm/dL (3.4-4.8); Albumin/Globulin Ratio 2.3 (1.2-2.2); Alkaline Phosphatase 68 U/L (46-116); Anion Gap 10 (7-16); Aspartate Amino Transferase 23 U/L (0-34); BUN/Creatinine Ratio 14 Ratio (12-20); Bilirubin,Total 0.6 mg/dL (0.3-1.2); Blood Urea Nitrogen 13 mg/dL (9-23); Calcium 9.1 mg/dL (8.3-10.6); Calcium (Corrected) 9.1 mg/dL (8.5-10.1); Carbon Dioxide 27.6 mMol/L (20.0-31.0); Chloride 107 mMol/L (98-107); Creatinine (Component) 0.9 mg/dL (0.6-1.3); Globulin 2.0 gm/dL (2.3-3.5); Glucose 95 mg/dL (74-106); Osmolality,Calculated 288 (275-295); Potassium 3.8 mMol/L (3.4-5.1); Sodium 145 mMol/L (136-145); Total Protein 6.5 gm/dL (5.7-8.2); eGFR > 60 See Note
== END | disposition home or self-care (01) ==
LOC: COPL 15:02 → SCTO 15:02
PROVIDERS: PCP Family Medicine; Referring Provider Internal Medicine Hematology & Oncology; Visit Provider Radiology Diagnostic Radiology
DX: I82.432 Acute embolism and thrombosis of left popliteal vein (principal)
CPT/HCPCS: 36415; 80053; 85025; 85379; 93970

== ENCOUNTER 2025-09-21 15:45 | Outpatient (RCR) | payer BC, SELFPAY ==
--- NOTE | 2025-10-18 22:27 | CTCFLWUP_ITS ---
Patient: SANDRA PRADHAN : 1965 Page 2 of 4 FOLLOW UP NOTE DATE OF SERVICE: 09/21/2025 NAME: SANDRA PRADHAN ACCOUNT: [id number] : 1965 AGE: 59 INTERVAL HISTORY: Persistent DVT and polycythemia ONCOLOGY HISTORY:?[facility] Hx? DIAGNOSIS: #1 deep vein thrombosis #2 erythrocytosis TREATMENT HISTORY: Care?Plan Start?Date Cycle Day Intent HISTORY OF PRESENT ILLNESS: 59-year-old male was diagnosed with a lower extremity DVT left in 2023. At that time he followed with him heavy equipment sales manager in [place]. He was started on Eliquis. Patient has been very compliant and has been taking Eliquis. Per patient his leg never has showed any improvement. He has been taking it for about 9 months. Patient had been having pain in his leg. He had an ultrasound which showed persistent clot in the left leg. Patient have a nonocclusive clot in the right leg and CT angiogram were all negative. Patient denies any shortness of breath Patient have never donated blood or had phlebotomy. Patient have a known diagnosis of erythrocytosis. Unfortunately patient never did phlebotomy which likely led to his clot formation along with history of travel in the past which might have induced first clot formation. Patient was started on Coumadin. He was having bruising on his face. Patient went to the emergency room and where he was given vitamin K to reverse anticoagulation and Coumadin was held. Patient is seen in the clinic today with swelling of his leg. Patient says that he could not follow-up with his primary care. 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 Tobacco?Use:?Denies ETOH?Use:?Socailly Drug?Note:?Denies Social?History?Note:?Lives?with? MEDICATIONS: 1. losartan - 50 mg 1 tab Daily 2. Lovenox - 80 mg/0.8 mL 0.8 mL .8 ml twice daily 3. multivitamin - 1 tab Daily?Pal[facility]ra Meds? Medications Last Reconciled by Isi Murphy MD on 08/11/2025 ALLERGIES: No Known Drug Allergies REVIEW OF SYSTEMS: A complete 14-point review of systems was performed and is negative except as noted in interval history. PHYSICAL EXAMINATION:?[facility] PE? VITAL SIGNS: Temperature?96.4, B/P?119/74, Oxygen?Saturation?92% Weight?175?lbs PAIN: 0 - No pain GENERAL APPEARANCE: Appears well, in no apparent distress, appropriately interactive. HEENT: Normocephalic, no temporal wasting, normal conjunctiva, no scleral icterus, normal hearing, lips without lesions, neck normal range of motion. CARDIOVASCULAR: Not assessed. PULMONARY: Normal respiratory effort, no respiratory distress or use of accessory muscles, speaking in full sentences, no tachypnea. EXTREMITIES: No pedal edema or cyanosis. SKIN: Normal skin appearance. NEUROLOGIC: Alert and oriented x4. PSHYCHIATRIC: Appropriate affect, mood normal, behavior normal, intact thought and speech. LABORATORY DATA: I have personally reviewed and interpreted each of the patient?s relevant lab tests, abnormal findings are below: Date 09/24/25 10/12/25 ??WHITE?BLOOD?COUNT?(Thou/mm3) 8.9 6.0 ??RED?BLOOD?COUNT?(Miln/mm3) 5.27 5.14 ??HEMOGLOBIN?(gm/dl) 16.5?H 15.6 ??HEMATOCRIT?(%) 49.1 45.8 ??PLATELET?COUNT?(Thou/mm3) 282 280 ??NEUTROPHILS?%,?AUTO?(%) 62 44 ??LYMPH?%,?AUTO?(%) 29 45 ??NEUTROPHILS,?AUTO?(Thou/mm3) 5.5 2.7 ??GLUCOSE,RANDOM?(mg/dL) 100 105 ??BLOOD?UREA?NITROGEN?(mg/dL) 12 13 ??CREATININE?(mg/dL) 1.20 0.90 ??SODIUM?(mmol/L) 139 142 ??POTASSIUM?(mmol/L) 4.4 4.1 ??CHLORIDE?(mmol/L) 103 107 ??CrCl?(CandG)?(ml/min) 73.50 98.00 ??AST/SGOT?(Unit/L) 78?H 23 ??ALT/SGPT?(Unit/L) 293?H 27 ??ALKALINE?PHOSPHATASE?(Unit/L) 115 84 ??BILIRUBIN,?TOTAL?(mg/dL) 0.6 0.4 ??PROTEIN?TOTAL?(gm/dl) 7.2 6.8 ??ALBUMIN,?SERUM?(gm/dl) 4.9?H 4.4 ??GLOBULIN?(gm/dl) 2.3 2.4 ??ALBUMIN/GLOBULIN?RATIO 2.1 1.8 ??CALCIUM,?SERUM?(mg/dL) 9.5 9.6 ??CALCIUM?SERUM?(CORRECTED)?(mg/dL) 9.5 9.6 ASSESSMENT/PLAN:?Dyana Kelly Assessment/Plan? Left Lower Extremity Deep Vein Thrombosis (DVT), likely provoked due to travel history Patient had erythrocytosis in the past JAK2 negative Will do phlebotomy to keep hematocrit below 45 Lovenox ordered Patient was unable to tolerate Coumadin as there is no Coumadin clinic to follow-up with INR Patient had mild bleeding from the face and was seen in the ER. Unfortunately patient was given vitamin K and his Coumadin was completely held and advised to follow-up with the primary care Patient was started on lovenox and advised to follow with hematology expert and need follow up and monitoring with coagulation clinic Cont lovenox until seen by heavy equipment sales manager ORDERS: Order # Description [id number] CT Scan [id number] MD Follow Up 4 Week [id number] RETURN TO CLINIC: I reviewed the diagnosis, prognosis, and recommended treatment/procedure options with the patient (and/or their legal customer service representative), including the potential benefits, risks, side effects and alternative therapies. We also discussed the option of no treatment and the possibility of clinical trial participation, if applicable. All questions were addressed, and they demonstrated understanding. They provided informed consent to proceed with the proposed plan of care. BILLING AND COMPLIANCE: I reviewed external records from providers outside my specialty as summarized above. I spent a total of 50 minutes on this patient?s care on the day of their visit excluding time spent related to any billed procedures. This time includes time spent with the patient as well as time spent documenting in the medical record, reviewing patients records and tests, obtaining history, placing orders, communicating with other healthcare professionals, counseling the patient, family or caregiver, and/or care coordination for the diagnoses above. Electronically Signed by: Oz Kelly MD T: 10:25 PM CC: PCP: Brant Jiménez Referring: Brant Jiménez This document was completed utilizing speech recognition software. Grammatical errors, random word insertions, pronoun errors, and incomplete sentences are an occasional consequence of this system due to software limitations, ambient noise, and hardware issues. Any formal questions or concerns about the content, text or information contained within the body of this dictation should be directly addressed to the provider for clarification.
== END 2025-10-18 23:59 | disposition home or self-care (01) ==
LOC: SCTC 15:45
PROVIDERS: PCP Family Medicine; Referring Provider Family Medicine; Visit Provider Internal Medicine Hematology & Oncology
DX: I82.402 Acute embolism and thrombosis of unspecified deep veins of left lower extremity (principal); Z86.2 Personal history of diseases of the blood and blood-forming organs and certain disorders involving the immune mechanism
CPT/HCPCS: 99212; G0463

== ENCOUNTER 2025-09-24 14:03 | Emergency (ER) | payer BC, SELFPAY ==
[2025-09-24 14:05] VITALS: BMI 28.2
[2025-09-24 14:23] VITALS: BP 117/76; PULSE 75; RESP 18; TEMP 36.8; O2SAT 95
--- NOTE | 2025-09-24 14:37 | XR_ITS ---
Examination: CT abdomen and pelvis without contrast. Coronal 3-D reconstructions. Sagittal 2-D reconstructions. Date and time of exam: 09/24/2025, 3:33 p.m. INDICATION: Bilateral flank pain with hematuria for 2 days COMPARISON: CT abdomen pelvis 07/31/2025, CT chest abdomen and pelvis 06/15/2025 CTDI: vol (mGy): 8.69 DLP: (mGycm): 539 Technique: Axial images of the abdomen have been obtained, 3 mm slice thickness Intravenous contrast material has not been administered. Low dose protocols were performed. One or more of the following dose reduction techniques were used; automated exposure control, adjustment of the mA and/or KV according to patient size, use of iterative reconstruction technique. Findings: Lack of intravenous contrast limits evaluation of solid organs, vasculature, and lymph nodes. Lower thorax: Redemonstration of linear scarring in both lungs. No pleural effusions. No airspace consolidation. Normal heart size. Proximal LAD atherosclerosis is present. Liver: No significant hepatic enlargement. No gross liver mass. Biliary system: No calcified gallstones or findings concerning for acute cholecystitis or bile duct obstruction. Spleen: Within normal limits of size. No discrete mass. Pancreas: No contour deforming mass or overt main pancreatic duct dilatation. No evidence for acute inflammation. Adrenal glands: No significant findings. Kidneys: Interval placement of left ureteral stent in appropriate position. Previously visualized left renal density suspicious for neoplasm has either regressed or resolved in the interim. Small left renal parapelvic cysts are present. No evidence for left renal calculi or hydronephrosis. Slight fat stranding is present along the course of the left ureter. No evidence for right renal calculi or hydronephrosis. There is a stable subcentimeter ovoid density along the anteromedial right renal cortex and adjacent segmental artery which could represent a small exophytic proteinaceous cyst (axial image 110). Bladder: A minimal degree of air is present in the bladder lumen which may be iatrogenic. No concerning bladder wall thickening otherwise. No bladder calculi. Pelvic organs: Prostatomegaly is redemonstrated. Unremarkable seminal vesicles. No pelvic lymphadenopathy. Small right hydrocele noted. Bowel/Peritoneal cavity: Limited assessment without IV and oral contrast as well as segments of underdistention. No contour deforming mass. No obstructive or acute inflammatory changes. Colonic diverticulosis without evidence for acute diverticulitis. Retrocecal/retrocolonic appendix without evidence for acute inflammation. No ascites or free air. No concerning peritoneal thickening. Lymph nodes/retroperitoneum: No pathologically enlarged lymph nodes or other masses. No hematoma or other abnormal collections. Vessels: No abdominal aortic aneurysm. Minimal aortoiliac calcific plaque noted. Abdominal/Pelvic wall: Minimal fat-containing umbilical hernia noted. Small fat-containing right inguinal hernia. Several new subcutaneous densities are present in the anterior abdominal wall bilaterally which most likely represent sequela of injections. Musculoskeletal: Multifocal degenerative changes with otherwise no evidence for recent fracture or aggressive lesion. IMPRESSION: Interval placement of left ureteral stent in appropriate position. Previously visualized left renal density suspicious for neoplasm has either regressed or resolved since the CT of 07/31/2025 with assessment limited with IV contrast. Slight fat stranding is present along the course of the left ureter. No urinary tract calculi or hydroureteronephrosis on either side. No findings concerning for metastatic disease by noncontrast CT. Chronic ancillary findings as above.
--- NOTE | 2025-09-24 14:44 | EDRME_ITS ---
Rapid Medical Screening Exam [facility] Arrival date/time: 09/24/25 14:03 59-year-old male with recent stent placement in [place] presents to the emerged from today for complaints of blood in his urine patient is on blood thinners Chief Complaint: Urogenital-Male Vital signs: Vital Signs Temperature 98.3 F 09/24/25 14:23 Pulse Rate 75 09/24/25 14:23 Respiratory Rate 18 09/24/25 14:23 Blood Pressure 117/76 09/24/25 14:23 Pulse Oximetry (%) 95 09/24/25 14:23 Oxygen Delivery Method Room Air 09/24/25 14:23 Vital signs reviewed by provider: Yes Exam: On exam patient well-appearing does not appear look toxic but does report pain patient has a urine cup bedside which shows gross hematuria Clinical Impression: Lab work and imaging ordered
[2025-09-24 15:08] LABS: Collection Type, Urine Clean Catch
[2025-09-24 15:14] LABS: Basophils # (Auto) 0.1 Thou/mm3 (0.0-0.2); Basophils % (Auto) 1 % (0-2.5); Eosinophils # (Auto) 0.1 Thou/mm3 (0.0-0.5); Eosinophils % (Auto) 1 % (0-10); Hematocrit 49.1 % (41.0-53.0); Hemoglobin 16.5 g/dL (13.5-16.0); Immature Granulocytes Auto 0.02 Thou/mm3 (0.00-0.00); Lymphocytes # (Auto) 2.6 Thou/mm3 (1.0-4.8); Lymphocytes % (Auto) 29 % (10-50); Mean Corpuscular HGB Conc 33.6 g/dl (31.0-37.0); Mean Corpuscular Hemoglobin 31.3 pg (25.0-35.0); Mean Corpuscular Volume 93 fL (80-100); Monocytes # (Auto) 0.7 Thou/mm3 (0.0-0.8); Monocytes % (Auto) 8 % (0-12); Neutrophils # (Auto) 5.5 Thou/mm3 (1.8-7.7); Neutrophils % (Auto) 62 % (37-80); Nucleated Red Blood Cell # 0.00 Thou/mm3 (0.00-0.00); Nucleated Red Blood Cell % 0 /100 WBC (0); Platelet Count 282 Thou/mm3 (140-440); RDW Standard Deviation 43.8 fL (35.1-43.9); Red Blood Count 5.27 Miln/mm3 (4.50-5.90); White Blood Count 8.9 Thou/mm3 (3.8-10.6)
[2025-09-24 15:21] LABS: Bilirubin,Urine Negative (Negative); Blood,Urine 3+ (Negative); Glucose, Urine Negative (Negative); Ketones,Urine Trace (Negative); Leukocyte Esterase,Urine Positive (Negative); Nitrite,Urine Negative (Negative); PH,Urine 6.0 (5.0-7.0); Protein,Urine 2+ (Neg - Trace); RBC,Urine 12821 /hpf (0-3); Specific Gravity,Urine 1.027 (1.001-1.035); Squamous Epithelial Cell,Urine 4 /hpf (0-5); Urobilinogen,Urine Negative mg/dL (0.0-1.0); WBC,Urine 318 /hpf (0-5)
[2025-09-24 15:23] LABS: Clarity,Urine Bloody (Clear/Hazy); Culture Indicated,Urine Yes
[2025-09-24 15:24] LABS: Color,Urine Drk Red (Lt Yel-Yel)
[2025-09-24 15:29] LABS: INR 1.0 (0.9-1.3); Partial Thromboplastin Time 30.4 Seconds (22.0-36.0); Prothrombin Time 10.7 Seconds (9.0-12.2)
[2025-09-24 15:38] LABS: Alanine Aminotransferase 293 U/L (10-49); Albumin, Serum 4.9 gm/dL (3.4-4.8); Albumin/Globulin Ratio 2.1 (1.2-2.2); Alkaline Phosphatase 115 U/L (46-116); Anion Gap 9 (7-16); Aspartate Amino Transferase 78 U/L (0-34); BUN/Creatinine Ratio 10 Ratio (12-20); Bilirubin,Total 0.6 mg/dL (0.3-1.2); Blood Urea Nitrogen 12 mg/dL (9-23); Calcium 9.5 mg/dL (8.3-10.6); Calcium (Corrected) 9.5 mg/dL (8.5-10.1); Carbon Dioxide 26.9 mMol/L (20.0-31.0); Chloride 103 mMol/L (98-107); Creatinine (Component) 1.2 mg/dL (0.6-1.3); Estimated Creatinine Clearance 64.8 mL/min (>60); Globulin 2.3 gm/dL (2.3-3.5); Glucose 100 mg/dL (74-106); Osmolality,Calculated 277 (275-295); Potassium 4.4 mMol/L (3.4-5.1); Sodium 139 mMol/L (136-145); Total Protein 7.2 gm/dL (5.7-8.2); eGFR > 60 See Note
--- NOTE | 2025-09-24 17:13 | PD.EDMALE ---
ED Male Genitalurinary RME/HPI General Chief complaint: Urogenital-Male Stated complaint: BLOOD IN URINE x 2 DAYS, RECENT KIDNEY STENTS Time Seen by Provider: 09/24/25 16:53 Arrival date/time: 09/24/25 14:03 59-year-old male patient with significant history of present placement of ureteral stone, in [place] last week, currently taking Alpine and Keflex came in for evaluation regarding dysuria and blood-tinged urine. Patient symptoms started for the last few days, severity moderate. No fever no abdominal pain no vomiting no other complaints except for constipation also. Related Data Previous Rx's ?Medication ?Instructions ?Recorded acetaminophen 500 mg tablet 500 mg PO Q6H PRN pain #20 tabs 03/23/24 (Tylenol Extra Strength) baclofen 10 mg tablet 10 mg PO BID #20 tabs 03/23/24 ibuprofen 600 mg tablet (IBU) 600 mg PO Q6H #20 tabs 03/23/24 apixaban 5 mg (74 tabs) tablets in 5 mg PO BID #74 tabs 11/17/24 a dose pack ([employer] DVT-PE Treat 30D Start) ciprofloxacin HCl 500 mg tablet 500 mg PO BID #14 tabs 09/24/25 peg 3350-electrolytes 236 240 ml PO Q10M #4,000 mL 09/24/25 gram-22.74 gram-6.74 gram-5.86 gram solution (Golytely) phenazopyridine 200 mg tablet 200 mg PO TID 6 doses #6 tabs 09/24/25 (Pyridium) Allergies Allergy/AdvReac Type Severity Reaction Status Date / Time No Known Allergies Allergy Verified 09/24/25 14:06 Review of Systems Review of Systems Narrative Review of Systems: Review of system reviewed and within normal limits except mentioned in HPI ED Exam Narrative Physical exam: VITAL SIGNS: Reviewed. GENERAL APPEARANCE: Alert and interactive, follows commands, no acute distress, HEAD AND FACE: Non-traumatic. ENT: PERRL, pink conjunctivitis, eyelid no trauma, Mucous membrane moist. NECK: Supple, nontender, no nuchal rigidity. CHEST: No tenderness, no crepitus, no paradoxical movement, no retractions. LUNGS: Clear, well ventilated, symmetric, no rales, no wheezing, no ronchi, no stridor, good breath sounds bilaterally. HEART: Regular rate, regular rhythm, no murmur, no gallops. ABDOMEN: Soft, positive bowel sounds, nondistended, no guarding, nontender, no rebound, no masses, RECTAL: Deferred. GENITAL: Deferred. NEUROLOGICAL: Gross motor function intact sensory function intact, Appropriate for age. MUSCULOSKELETAL: low back nontender, full range of motion. EXTREMITIES: Nontender, full range of motion. SKIN: Color pink, dry, no rash, no lacerations, no abrasions, no contusions. LYMPHATICS: Deferred. Course Quality Measures none Orders Category Date Time Status CT abdomen pelvis wo con Stat Exams 09/24/25 14:37 Completed CBC Stat Lab 09/24/25 14:57 Completed Comprehensive Metabolic Panel Stat Lab 09/24/25 14:57 Completed PT [Prothrombin Time with INR] Stat Lab 09/24/25 14:57 Completed PTT [Partial Thromboplastin Time] Stat Lab 09/24/25 14:57 Completed UA, C/S IF [Urinalysis, C/S if Indicated] Stat Lab 09/24/25 15:00 Completed Urine Culture Stat Lab 09/24/25 15:00 Received Ciprofloxacin HCl [Ciprofloxacin] Med 09/24/25 17:10 Once 500 mg PO X1 ONE Ketorolac Inj [Toradol Inj] Med 09/24/25 17:10 Once 30 mg IM X1 ONE Phenazopyridine HCl [Pyridium] Med 09/24/25 17:09 Once 200 mg PO X1 ONE Vital Signs Vital signs: Vital Signs Temperature 98.3 F 09/24/25 14:23 Pulse Rate 75 09/24/25 14:23 Respiratory Rate 18 09/24/25 14:23 Blood Pressure 117/76 09/24/25 14:23 Pulse Oximetry (%) 95 09/24/25 14:23 Oxygen Delivery Method Room Air 09/24/25 14:23 Urogenital - Male MDM Narrative MDM Narrative:: 59-year-old male patient with significant history of present placement of ureteral stone, in [place] last week, currently taking Alpine and Keflex came in for evaluation regarding dysuria and blood-tinged urine. Patient symptoms started for the last few days, severity moderate. No fever no abdominal pain no vomiting no other complaints except for constipation also. Patient's urinalysis positive for UTI and RBC. Creatinine is normal. CT scan of the abdomen and pelvis pelvis showed Interval placement of left ureteral stent in appropriate position. Previously visualized left renal density suspicious for neoplasm has either regressed or resolved since the CT of 07/31/2025 with assessment limited with IV contrast. Slight fat stranding is present along the course of the left ureter. No urinary tract calculi or hydroureteronephrosis on either side. No findings concerning for metastatic disease by noncontrast CT. Chronic ancillary findings as above. Results discussed with the patient. Patient was given Toradol IM and Pyridium, and Cipro. Patient was advised to closely follow-up with urologist who did not state placement next week. Patient agrees with the plan stable discharge home Patient data External records reviewed:: None Clinical information provided by:: patient Social determinants that could affect healthcare access:: none Patient has the following chronic illnesses:: History of recent stent placement How is presenting disease/condition affected by chronic disease/condition?: caused by Evaluation data The following diagnostics were reviewed and interpreted by me:: lab results and radiology exam(s) Lab and/or radiology exams considered but not ordered:: None Interpretation Summary: See [facility] Medications / Prescriptions Medications or Prescriptions considered but not ordered:: none Medication administrations:: Medication Administration History Ciprofloxacin (Ciprofloxacin Hcl 250 Mg Tablet) 500 mg PO X1 ONE Stop: 09/24/25 17:11 Ketorolac Tromethamine (Ketorolac Inj 30 Mg/Ml Vial) 30 mg IM X1 ONE Stop: 09/24/25 17:11 Phenazopyridine HCl (Phenazopyridine Hcl 100 Mg Tablet) 200 mg PO X1 ONE Stop: 09/24/25 17:[address] [facility] Consultations Consultation(s) initiated? (list below): No Diagnosis Urogenital Male Differential Diagnosis: urinary tract infection, urethritis, epididymitis and prostatitis Most likely diagnosis given after review of the tests above:: UTI, constipation Admission Indicated Admission indicated?: not indicated Admission Request Was there a request for admission?: No Disposition Plan Disposition Plan: Discharge Discharge Attestation Discharge Attestation: The patient was given an opportunity to ask questions and understood the discharge instructions. Discharge instructions specifically effects, indications for sooner follow up or return to the emergency department, and the expected course of current diagnosis. Patient condition: Stable Discharge Plan Plan Patient Disposition: HOME (Self Care) Discharge Disposition comment: Stable Prescriptions/Referrals Prescriptions/Med Rec: New peg 3350-electrolytes [Golytely] 236-22.74-6.74 -5.86 gram recon soln 240 ml PO Q10M Qty: 4000 0RF Rx Instructions: until fecal effluent is clear phenazopyridine [Pyridium] 200 mg tablet 200 mg PO TID Qty: 6 0RF ciprofloxacin HCl 500 mg tablet 500 mg PO BID Qty: 14 0RF No Action Eliquis DVT-PE Treat 30D Start 5 mg (74 tabs) tablets,dose pack 5 mg PO BID Qty: 74 0RF ibuprofen [IBU] 600 mg tablet 600 mg PO Q6H Qty: 20 0RF acetaminophen [Tylenol Extra Strength] 500 mg tablet 500 mg PO Q6H PRN (Reason: pain) Qty: 20 0RF baclofen 10 mg tablet 10 mg PO BID Qty: 20 0RF Problem List Clinical Impression: Urinary tract infection Patient/Caregiver Discharge Instructions Discharge Activity: activity as tolerated Education Materials: Understanding Urinary Tract ..., ED Hematuria Additional Instructions: Thank you for the opportunity for serving you today. You are stable for discharged . You are advised to: Follow-up with your urologist next week Return to ED for worsening of symptoms Increase oral fluids Take medication as prescribed Print Language: Cuban Stand Alone Forms: [facility] Award Info., Patient Portal Info Letter PA/LEONOR Supervising Physician PA/LEONOR Supervising Physician: MD Kamala
[2025-09-24] MEDS: KETOROLAC INJ 30 MG/ML VIAL IM (17:19)
[2025-09-24] MEDS: CIPROFLOXACIN HCL 250 MG TABLET 500 MG PO (17:19)
[2025-09-24] MEDS: PHENAZOPYRIDINE HCL 100 MG TABLET 200 MG PO (17:20)
== END 2025-09-24 17:52 | disposition home or self-care (01) ==
LOC: SERX 17:25
PROVIDERS: Nurse Practitioner Primary Care; Emergency Provider Nurse Practitioner Family
DX: N39.0 Urinary tract infection, site not specified (principal); Z96.0 Presence of urogenital implants
CPT/HCPCS: 36415; 74176; 80053; 81001; 85025; 85610; 85730; 87086; 96372; 99283; J1885; A9270

== ENCOUNTER → 2025-10-12 | Outpatient (CLI) | payer BC, SELFPAY ==
[2025-10-12 13:28] LABS: Basophils # (Auto) 0.1 Thou/mm3 (0.0-0.2); Basophils % (Auto) 1 % (0-2.5); Eosinophils # (Auto) 0.1 Thou/mm3 (0.0-0.5); Eosinophils % (Auto) 2 % (0-10); Hematocrit 45.8 % (41.0-53.0); Hemoglobin 15.6 g/dL (13.5-16.0); Immature Granulocytes Auto 0.01 Thou/mm3 (0.00-0.00); Lymphocytes # (Auto) 2.7 Thou/mm3 (1.0-4.8); Lymphocytes % (Auto) 45 % (10-50); Mean Corpuscular HGB Conc 34.1 g/dl (31.0-37.0); Mean Corpuscular Hemoglobin 30.4 pg (25.0-35.0); Mean Corpuscular Volume 89 fL (80-100); Monocytes # (Auto) 0.4 Thou/mm3 (0.0-0.8); Monocytes % (Auto) 7 % (0-12); Neutrophils # (Auto) 2.7 Thou/mm3 (1.8-7.7); Neutrophils % (Auto) 44 % (37-80); Nucleated Red Blood Cell # 0.00 Thou/mm3 (0.00-0.00); Nucleated Red Blood Cell % 0 /100 WBC (0); Platelet Count 280 Thou/mm3 (140-440); RDW Standard Deviation 40.9 fL (35.1-43.9); Red Blood Count 5.14 Miln/mm3 (4.50-5.90); White Blood Count 6.0 Thou/mm3 (3.8-10.6)
[2025-10-12 13:41] LABS: Alanine Aminotransferase 27 U/L (10-49); Albumin, Serum 4.4 gm/dL (3.4-4.8); Albumin/Globulin Ratio 1.8 (1.2-2.2); Alkaline Phosphatase 84 U/L (46-116); Anion Gap 11 (7-16); Aspartate Amino Transferase 23 U/L (0-34); BUN/Creatinine Ratio 14 Ratio (12-20); Bilirubin,Total 0.4 mg/dL (0.3-1.2); Blood Urea Nitrogen 13 mg/dL (9-23); Calcium 9.6 mg/dL (8.3-10.6); Calcium (Corrected) 9.6 mg/dL (8.5-10.1); Carbon Dioxide 24.3 mMol/L (20.0-31.0); Chloride 107 mMol/L (98-107); Creatinine (Component) 0.9 mg/dL (0.6-1.3); Globulin 2.4 gm/dL (2.3-3.5); Glucose 105 mg/dL (74-106); Osmolality,Calculated 283 (275-295); Potassium 4.1 mMol/L (3.4-5.1); Sodium 142 mMol/L (136-145); Total Protein 6.8 gm/dL (5.7-8.2); eGFR > 60 See Note
== END | disposition home or self-care (01) ==
LOC: SCTO 12:13
PROVIDERS: PCP Family Medicine; Referring Provider Internal Medicine Hematology & Oncology; Visit Provider Internal Medicine Hematology & Oncology
DX: I82.402 Acute embolism and thrombosis of unspecified deep veins of left lower extremity (principal)
CPT/HCPCS: 36415; 80053; 85025

== ENCOUNTER 2025-10-19 13:09 | Outpatient (RCR) | payer BC, SELFPAY ==
--- NOTE | 2025-10-19 14:06 | CTCFLWUP_ITS ---
Patient: SANDRA PRADHAN : 1965 Page 3 of 5 FOLLOW UP NOTE DATE OF SERVICE: 10/19/2025 NAME: SANDRA PRADHAN ACCOUNT: [id number] : 1965 AGE: 59 INTERVAL HISTORY: Persistent DVT and mild polycythemia. Patient had his phlebotomy about 2 months ago. Patient is taking Lovenox and doing well ONCOLOGY HISTORY: DIAGNOSIS: #1 deep vein thrombosis #2 erythrocytosis TREATMENT HISTORY: Care?Plan Start?Date Cycle Day Intent HISTORY OF PRESENT ILLNESS: 59-year-old male was diagnosed with a lower extremity DVT left in 2023. At that time he followed with him it corporate recruiter in [place]. He was started on Eliquis. Patient has been very compliant and has been taking Eliquis. Per patient his leg never has showed any improvement. He has been taking it for about 9 months. Patient had been having pain in his leg. He had an ultrasound which showed persistent clot in the left leg. Patient have a nonocclusive clot in the right leg and CT angiogram were all negative. Patient denies any shortness of breath Patient have never donated blood or had phlebotomy. Patient have a known diagnosis of erythrocytosis. Unfortunately patient never did phlebotomy which likely led to his clot formation along with history of travel in the past which might have induced first clot formation. Patient was started on Coumadin. He was having bruising on his face. Patient went to the emergency room and where he was given vitamin K to reverse anticoagulation and Coumadin was held. Patient is seen in the clinic today with swelling of his leg. Patient says that he could not follow-up with his primary care. 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 Tobacco?Use:?Denies ETOH?Use:?Socailly Drug?Note:?Denies Social?History?Note:?Lives?with? MEDICATIONS: 1. losartan - 50 mg 1 tab Daily 2. Lovenox - 80 mg/0.8 mL 0.8 mL .8 ml twice daily 3. meloxicam - 7.5 mg 1 tab As needed 4. multivitamin - 1 tab Daily Medications Last Reconciled by Iis Echevarria MA on 10/19/2025 ALLERGIES: No Known Drug Allergies REVIEW OF SYSTEMS: A complete 14-point review of systems was performed and is negative except as noted in interval history. PHYSICAL EXAMINATION: VITAL SIGNS: PAIN: 0 - No pain ECOG Performance Status: 0 - Asymptomatic and fully active GENERAL APPEARANCE: Appears well, in no apparent distress, appropriately interactive. HEENT: Normocephalic, no temporal wasting, normal conjunctiva, no scleral icterus, normal hearing, lips without lesions, neck normal range of motion. CARDIOVASCULAR: Not assessed. PULMONARY: Normal respiratory effort, no respiratory distress or use of accessory muscles, speaking in full sentences, no tachypnea. EXTREMITIES: No pedal edema or cyanosis. SKIN: Normal skin appearance. NEUROLOGIC: Alert and oriented x4. PSHYCHIATRIC: Appropriate affect, mood normal, behavior normal, intact thought and speech. LABORATORY DATA: I have personally reviewed and interpreted each of the patient?s relevant lab tests, abnormal findings are below: Date 09/24/25 10/12/25 ??WHITE?BLOOD?COUNT?(Thou/mm3) 8.9 6.0 ??RED?BLOOD?COUNT?(Miln/mm3) 5.27 5.14 ??HEMOGLOBIN?(gm/dl) 16.5?H 15.6 ??HEMATOCRIT?(%) 49.1 45.8 ??PLATELET?COUNT?(Thou/mm3) 282 280 ??NEUTROPHILS?%,?AUTO?(%) 62 44 ??LYMPH?%,?AUTO?(%) 29 45 ??NEUTROPHILS,?AUTO?(Thou/mm3) 5.5 2.7 ??GLUCOSE,RANDOM?(mg/dL) 100 105 ??BLOOD?UREA?NITROGEN?(mg/dL) 12 13 ??CREATININE?(mg/dL) 1.20 0.90 ??SODIUM?(mmol/L) 139 142 ??POTASSIUM?(mmol/L) 4.4 4.1 ??CHLORIDE?(mmol/L) 103 107 ??CrCl?(CandG)?(ml/min) 73.50 98.00 ??AST/SGOT?(Unit/L) 78?H 23 ??ALT/SGPT?(Unit/L) 293?H 27 ??ALKALINE?PHOSPHATASE?(Unit/L) 115 84 ??BILIRUBIN,?TOTAL?(mg/dL) 0.6 0.4 ??PROTEIN?TOTAL?(gm/dl) 7.2 6.8 ??ALBUMIN,?SERUM?(gm/dl) 4.9?H 4.4 ??GLOBULIN?(gm/dl) 2.3 2.4 ??ALBUMIN/GLOBULIN?RATIO 2.1 1.8 ??CALCIUM,?SERUM?(mg/dL) 9.5 9.6 ??CALCIUM?SERUM?(CORRECTED)?(mg/dL) 9.5 9.6 ASSESSMENT/PLAN: Left Lower Extremity Deep Vein Thrombosis (DVT), likely provoked due to travel history Patient had erythrocytosis in the past JAK2 negative Will do phlebotomy to keep hematocrit below 45 Lovenox ordered Sleep study reviewed and shows RASHMI Ordered CPAP machine and also gave report to discuss with the primary care RTC in 1 to 2 months to review the imaging results ORDERS: Order # Description [id number] MD Follow Up 4 Month [id number] MD Follow Up 6 Month [id number] Comprehensive Metabolic Panel - 12 + CBC with Auto Diff [id number] MD Follow Up 3 Months [id number] MD Follow Up 2 Months RETURN TO CLINIC: I reviewed the diagnosis, prognosis, and recommended treatment/procedure options with the patient (and/or their legal territory sales representative), including the potential benefits, risks, side effects and alternative therapies. We also discussed the option of no treatment and the possibility of clinical trial participation, if applicable. All questions were addressed, and they demonstrated understanding. They provided informed consent to proceed with the proposed plan of care. BILLING AND COMPLIANCE: I reviewed external records from providers outside my specialty as summarized above. I spent a total of 50 minutes on this patient?s care on the day of their visit excluding time spent related to any billed procedures. This time includes time spent with the patient as well as time spent documenting in the medical record, reviewing patients records and tests, obtaining history, placing orders, communicating with other healthcare professionals, counseling the patient, family or caregiver, and/or care coordination for the diagnoses above. Electronically Signed by: Oz Kelly MD T: 2:04 PM CC: PCP: Brant Jiménez Referring: Brant Jiménez This document was completed utilizing speech recognition software. Grammatical errors, random word insertions, pronoun errors, and incomplete sentences are an occasional consequence of this system due to software limitations, ambient noise, and hardware issues. Any formal questions or concerns about the content, text or information contained within the body of this dictation should be directly addressed to the provider for clarification.
== END 2025-11-18 23:59 | disposition home or self-care (01) ==
LOC: SCTC 13:09
PROVIDERS: PCP Family Medicine; Referring Provider Family Medicine; Visit Provider Internal Medicine Hematology & Oncology
DX: I82.402 Acute embolism and thrombosis of unspecified deep veins of left lower extremity (principal); D75.1 Secondary polycythemia
CPT/HCPCS: 99213; G0463

== ENCOUNTER → 2025-11-02 | Outpatient (CLI) | payer BC, SELFPAY ==
--- NOTE | 2025-11-02 10:15 | XR_ITS ---
Examination: Arterial duplex lower extremity study. Date and time of exam: November 02, 2025, 1054 hours INDICATIONS: Diagnosis acute embolism and thrombosis of unspecified deep veins, leg pain months Findings: Duplex sonographic imaging of the lower extremity arteries using B-mode/Myles scale imaging and Doppler spectral analysis and color flow. Ankle brachial indices have been recorded. Right common femoral artery demonstrates triphasic flow. Right superficial femoral artery demonstrates triphasic flow. Right popliteal artery demonstrates triphasic flow. Right posterior tibial artery demonstrated triphasic flow. Right ankle/brachial index is 0.9. Left common femoral artery demonstrates triphasic flow. Left superficial femoral artery demonstrates triphasic flow. Left popliteal artery demonstrates triphasic flow. Left posterior tibial artery demonstrated triphasic flow. Left ankle/brachial index is 1.2. Impression: Abnormal right ankle-brachial index consistent with obstructive arterial disease right lower extremity
== END | disposition home or self-care (01) ==
LOC: CDIM 10:14
PROVIDERS: PCP Family Medicine; Referring Provider Internal Medicine Hematology & Oncology; Visit Provider Internal Medicine Hematology & Oncology
DX: I70.203 Unspecified atherosclerosis of native arteries of extremities, bilateral legs (principal)
CPT/HCPCS: 93925

== ENCOUNTER → 2025-11-17 | Outpatient (CLI) | payer BC, SELFPAY ==
--- NOTE | 2025-11-17 10:30 | ECHO_ITS ---
Patient Info Name: Brooks Hickey Age: 59 years : 1965 Gender: Male Ht: 168 cm Wt: 79 kg BSA: 1.94 m2 BP: 129 / 77 mmHg HR: 66 bpm Exam Date: 11/17/2025 10:15 AM Admit Date: 11/17/2025 Site: [facility] Room Number: OP Patient Status: O Exam Type: CA echo doppler complete [employer] Installer: [place] Zuleta Ordering Physician: Oz Kelly Referring Physician: Oz Kelly Study Info Indications Acute embolism and thrombosis of unspecified deep veins of l - Primary Location: SDIM Left Ventricular Outflow Tract Name Value Normal LVOT 2D LVOT Diameter 2.1 cm LVOT Doppler LVOT Peak Velocity 92 cm/s LVOT Mean Gradient 2 mmHg LVOT VTI 19 cm LVOT VTI/AV VTI Ratio 0.9 LVOT Stroke Volume 67 ml Pulmonic Valve Name Value Normal PV Doppler PV Peak Velocity 87 cm/s Mitral Valve Name Value Normal MV Doppler MV Mean Gradient 1 mmHg MV Decel Tripp 325 cm/s2 MV PHT 43 ms MV Area (PHT) 5.1 cm2 4.0-5.0 MV Area (Cont Eq VTI) 2.6 cm2 MV Diastolic Function MV E Peak Velocity 48 cm/s MV A Peak Velocity 62 cm/s MV E/A 0.8 MV Annular TDI MV Septal e' Velocity 10.0 cm/s MV E/e' (Septal) 4.8 MV Lateral e' Velocity 10.3 cm/s MV E/e' (Lateral) 4.7 MV e' Average 10.15 cm/s MV E/e' (Average) 4.7 Tricuspid Valve Name Value Normal TV Regurgitation Doppler TR Peak Velocity 138 cm/s Estimated PAP/RSVP RA Pressure 8 mmHg <=5 PA Systolic Pressure 16 mmHg <36 RV Systolic Pressure 16 mmHg <36 TV Annular TDI TV Lateral Adilene s' Velocity 14.7 cm/s >=9.5 Aortic Valve Name Value Normal AV 2D/MM AV Cusp Sep (MM) 1.8 cm AV Doppler AV Peak Velocity 119 cm/s AV Mean Gradient 3 mmHg AV VTI 22 cm AV Area (Cont Eq VTI) 3.0 cm2 >=3.0 AV Area (Cont Eq Quirino) 2.7 cm2 AV DI (Quirino) 0.78 AV Regurgitation 2D LVOT Area 3.5 cm2 Ventricles Name Value Normal LV Dimensions 2D/MM IVS Diastolic Thickness (2D) 0.8 cm 0.6-1.0 LVID Diastole (2D) 4.2 cm 4.2-5.8 LVIW Diastolic Thickness (2D) 0.9 cm 0.6-1.0 LVID Systole (2D) 2.7 cm 2.5-4.0 LVOT Diameter 2.1 cm LV Mass (2D Cubed) 109.83 g 88.00-224.00 LV Mass Index (2D Cubed) 57 g/m2 49-115 Relative Wall Thickness (2D) 0.43 <=0.42 IVS/LVIW Diastolic Thickness (2D) 0.89 0.00-1.50 LV Fractional Shortening/Ejection Fraction 2D/MM LV Fractional Shortening (2D) 36 % 25-43 LV EF (2D Teichholz) 66 % RV Dimensions 2D/MM TV Lateral Adilene s' Velocity 14.7 cm/s >=9.5 Atria Name Value Normal LA Dimensions LA Volume (4C A-L) 23 ml LA Volume (BP A-L) 27 ml Left Ventricle Left ventricular chamber dimension is normal. Left ventricular systolic function is normal with visually estimated ejection fraction of 60-65%. There is concentric remodeling noted in the left ventricle. Left ventricular segmental wall motion is normal. There is normal diastolic function in the left ventricle. Right Ventricle Right ventricular chamber dimension is normal. Right ventricular systolic function is normal. Left Atrium Left atrial chamber dimension is normal. Right Atrium Right atrial chamber dimension is normal. Aortic Valve The aortic valve is trileaflet. There is no aortic valve sclerosis. There is no aortic valve stenosis with a peak velocity of 119 cm/s, mean gradient of 3 mmHg, and aortic valve area of 3.0 cm2. There is no aortic valve regurgitation. Pulmonic Valve The pulmonic valve is normal. There is no pulmonic valve stenosis. There is no pulmonic regurgitation. Mitral Valve The mitral valve has normal leaflets. There is no mitral valve stenosis. There is trace mitral valve regurgitation. Tricuspid Valve The tricuspid valve leaflets are normal. There is no tricuspid valve stenosis. There is trace tricuspid valve regurgitation. No pulmonary hypertension, estimated pulmonary arterial systolic pressure is 16 mmHg and systemic blood pressure of 129 mmHg in systole. Pericardium/Pleural The pericardium appears normal. There is no pericardial effusion. No pleural effusion visualized. Inferior Vena Cava Not well visualized inferior vena cava with >50% collapse upon inspiration consistent with normal right atrial pressure, 8 mmHg. Aorta The aortic measurements are indexed to age and body surface area. The aortic root at the sinus of Valsalva is not well visualized. The prox ascending aorta is not well visualized. Summary 1. Left ventricle size is normal and systolic function is normal. Estimated ejection fraction is 60-65%. There is normal diastolic function. There is concentric remodeling noted. 2. Normal RV size and function. Estimated RVSP is 16 mmHg. 3. Trace MR,TR. 4. The left atrium is normal. The right atrium is normal. 5. Not well visualized IVC with estimated RA pressure 8 mmHg. Report Signatures Finalized by Clint Gorman on 11/20/2025 08:23 AM
== END | disposition home or self-care (01) ==
PROVIDERS: PCP Family Medicine; Referring Provider Internal Medicine Hematology & Oncology; Visit Provider Internal Medicine Hematology & Oncology
DX: I08.1 Rheumatic disorders of both mitral and tricuspid valves (principal)
CPT/HCPCS: 93306